=== PATIENT | female | born 1955 | race Caucasian/White ===

== ENCOUNTER 2017-02-22 18:24 | Emergency (ER) | payer MEDICARE, MEDICAID, SELFPAY ==
[2017-02-22 18:38] VITALS: BP 123/86
[2017-02-22] MEDS ORDERED: Sodium Chloride 0.9% 10 ML Syringe FLUSH PRN (18:49)
--- NOTE | 2017-02-22 19:06 | EDM.PDOC ---
ED HISTORY OF PRESENT ILLNESS - General Chief Complaint: Cardiovascular Problem Stated Complaint: RAPID HEART BEAT Time Seen by Provider: 02/22/17 18:41 Source of Information: Reports: Patient History Limitations: Reports: No limitations - History of Present Illness INITIAL COMMENTS - FREE TEXT/NARRATIVE: 61 year old female presents for evaluation and treatment of chest palpitations. Patient reports chest pain last night. Describes the chest pain as being hit with a bat in the chest hat took her breath away. She went to bed and has not had any chest pain today. Patient reports associated symptoms of diaphoresis and fatigue. Denies any recent coughs or colds, current chest pain, current shortness of breath, edema, nausea or vomiting. REports constant weight fluctuation of 1-3 pounds. No major weight loss or weight gain. Patient has a pacemaker in place and a history of CHF. No history of NH. Patient reports she had her pacemaker checked today. Patient was previously on remeron 30mg PO qhrs. Last week she contacted her PCP who instructed her to stop the remeron and start tylenon pm. Patient has been takign the tylenol pm and melatonin at night. States she has not slept well but does not like being on the remeron. - Related Data Allergies/ADRs: Allergies Allergy/AdvReac Type Severity Reaction Status Date / Time Pyrazoles Allergy unknown Verified 02/22/17 18:38 Sulfa (Sulfonamide Allergy unknown Verified 02/22/17 18:38 Antibiotics) celecoxib [From Celebrex] AdvReac weight gain Verified 02/22/17 18:38 rofecoxib AdvReac weight gain Verified 02/22/17 18:38 iv contrast Allergy Rash Uncoded 02/22/17 18:39 Home Meds: Home Meds Vitamin B Complex & Vit C No.4 [Super B Complex] 1 tab PO DAILY 02/09/14 [ History] atorvaSTATin [Lipitor] 10 mg PO DAILY 02/09/14 [History] Carvedilol 12.5 mg PO BID 10/05/14 [History] Cholecalciferol (Vitamin D3) [Vitamin D3] 1,000 units PO DAILY 10/05/14 [History ] LORazepam [Ativan] 0.5 mg PO Q6HR PRN #5 tablet 02/22/17 [Rx] Magnesium 250 mg PO TID 02/22/17 [History] Past Medical History HEENT History: Reports: Impaired vision Cardiovascular History: Reports: CAD, Cardiomyopathy, Pacemaker Other Cardiovascular History: grade 3 heart failure Respiratory History: Reports: Bronchitis, recurrent, Pneumonia, recurrent, SOB Musculoskeletal History: Reports: Fibromyalgia Psychiatric History: Reports: Anxiety, Depression, Other (see below) Other Psychiatric History: difficulty sleeping Endocrine/Metabolic History: Reports: Diabetes, type II Hematologic History: Reports: Anemia - Past Surgical History HEENT Surgical History: Reports: Cataract surgery GI Surgical History: Reports: Appendectomy, Bariatric procedure, Cholecystectomy , Hernia, abdominal Female Surgical History: Reports: section Social & Family History - Family History Family Medical History: Noncontributory - Tobacco Use Smoking Status *Q: Former Smoker Years of Tobacco use: 30 Used Tobacco, but Quit: No Month Tobacco Last Used: 5 years Second Hand Smoke Exposure: No - Caffeine Use Caffeine Use: Reports: Coffee - Alcohol Use Days Per Week of Alcohol Use: 0 - Recreational Drug Use Recreational Drug Use: No Drug Use in Last 12 Months: No ED ROS GENERAL - Review of Systems Review Of Systems: See Below Constitutional: Reports: malaise, fatigue, diaphoresis. Denies: fever, weight loss, weight gain Respiratory: Denies: Shortness of Breath (none currently, some last night), Cough Cardiovascular: Reports: Palpitations. Denies: Chest pain (no current chest pain; chest pain last night) GI/Abdominal: Denies: Abdominal pain, Nausea, Vomiting ED EXAM, GENERAL - Physical Exam Exam: See Below Exam Limited By: No limitations General Appearance: alert, WD/WN, no apparent distress Throat/Mouth: Normal voice, No airway compromise Respiratory/Chest: no respiratory distress, lungs clear, normal breath sounds Cardiovascular: normal peripheral pulses, regular rate, rhythm, no murmur GI/Abdominal: soft, non tender Neurological: alert, oriented, normal cognition Psychiatric: normal affect, normal mood Skin Exam: Warm, Dry, Normal color EKG INTERPRETATION EKG Date: 02/22/17 Time: 18:55 Rhythm: NSR Rate (beats/min): 68 [place]: normal P-wave: present QRS: normal ST-T: normal QT: normal EKG Interpretation Comments: NSR at 68 bpm. First degree AV block. Nonspecific interventricular conductions delay. No ischemic change. Reviewed by myself and Dr. Gamez. Course - Vital Signs Last Recorded V/S: Last Vital Signs Temp 37.4 C 02/22/17 18:25 Pulse 71 02/22/17 18:25 Resp 16 02/22/17 18:25 BP 123/86 02/22/17 18:25 Pulse Ox 97 02/22/17 18:25 - Orders/Labs/Meds Orders: Active Orders 24 hr Category Date Time Status Cardiac Monitoring [RC] . DIRECTED Care 02/22/17 18:49 Active EKG 12 Lead [EKG Documentation Completion] [RC] STAT Care 02/22/17 18:48 Active Peripheral IV Care [RC] . DIRECTED Care 02/22/17 18:49 Active Chest 1V Frontal [CR] Stat Exams 02/22/17 18:49 Taken Sodium Chloride 0.9% [Saline Flush] Med 02/22/17 18:49 Active 10 ml FLUSH ASDIRECTED PRN Peripheral IV Insertion Adult [OM.PC] Routine Oth 02/22/17 18:49 Ordered Medication Orders Sodium Chloride (Saline Flush) 10 ml FLUSH ASDIRECTED PRN PRN Reason: Keep Vein Open Labs: Laboratory Tests 02/22/17 02/22/17 02/22/17 Range/Units 19:15 19:15 19:15 WBC 7.65 (3.98-10.04) K/mm3 RBC 4.74 (3.98-5.22) M/mm3 Hgb 13.6 (11.2-15.7) gm/L Hct 41.7 (34.1-44.9) % MCV 88.0 (79.4-94.8) fl MCH 28.7 (25.6-32.2) pg MCHC 32.6 (32.2-35.5) g/dl RDW Std Deviation 40.8 (36.4-46.3) fL Plt Count 253 (182-369) K/mm3 MPV 10.4 (9.4-12.3) fl Neut % (Auto) 60.2 (34.0-71.1) % Lymph % (Auto) 27.8 (19.3-51.7) % [place] % (Auto) 8.0 (4.7-12.5) % Eos % (Auto) 3.4 (0.7-5.8) Baso % (Auto) 0.3 (0.1-1.2) % Neut # (Auto) 4.61 (1.56-6.13) K/mm3 Lymph # (Auto) 2.13 (1.18-3.74) K/mm3 [place] # (Auto) 0.61 H (0.24-0.36) K/mm3 Eos # (Auto) 0.26 (0.04-0.36) K/mm3 Baso # (Auto) 0.02 (0.01-0.08) K/mm3 Manual Slide Review Normal smear PT 10.1 (8.0-13.0) SECONDS INR 0.93 APTT 28 (22-36) SECONDS Sodium 142 (136-145) mEq/L Potassium 3.9 (3.5-5.1) mEq/L Chloride 105 (98-107) mEq/L Carbon Dioxide 26 (21-32) mEq/L Anion Gap 14.9 (5-15) BUN 23 H (7-18) mg/dL Creatinine 0.7 (0.55-1.02) mg/dL Est Cr Clr Drug Dosing 59.85 mL/min Estimated GFR (MDRD) > 60 (>60) mL/min BUN/Creatinine Ratio 32.9 H (14-18) Glucose 138 H (80-115) mg/dL Calcium 9.4 (8.5-10.1) mg/dL Total Bilirubin 0.2 (0.2-1.0) mg/dL AST 54 H (15-37) U/L ALT 82 H (14-59) U/L Alkaline Phosphatase 143 H (46-116) U/L CK-MB (CK-2) 0.6 (0-3.6) ng/ml Troponin I < 0.017 (0.00-0.056) ng/mL B-Natriuretic Peptide (0-100) pg/mL Total Protein 7.1 (6.4-8.2) g/dl Albumin 3.7 (3.4-5.0) g/dl Globulin 3.4 gm/dL Albumin/Globulin Ratio 1.1 (1-2) TSH 3rd Generation 3.469 (0.358-3.74) uIU/mL 02/22/17 Range/Units 19:15 WBC (3.98-10.04) K/mm3 RBC (3.98-5.22) M/mm3 Hgb (11.2-15.7) gm/L Hct (34.1-44.9) % MCV (79.4-94.8) fl MCH (25.6-32.2) pg MCHC (32.2-35.5) g/dl RDW Std Deviation (36.4-46.3) fL Plt Count (182-369) K/mm3 MPV (9.4-12.3) fl Neut % (Auto) (34.0-71.1) % Lymph % (Auto) (19.3-51.7) % [place] % (Auto) (4.7-12.5) % Eos % (Auto) (0.7-5.8) Baso % (Auto) (0.1-1.2) % Neut # (Auto) (1.56-6.13) K/mm3 Lymph # (Auto) (1.18-3.74) K/mm3 [place] # (Auto) (0.24-0.36) K/mm3 Eos # (Auto) (0.04-0.36) K/mm3 Baso # (Auto) (0.01-0.08) K/mm3 Manual Slide Review PT (8.0-13.0) SECONDS INR APTT (22-36) SECONDS Sodium (136-145) mEq/L Potassium (3.5-5.1) mEq/L Chloride (98-107) mEq/L Carbon Dioxide (21-32) mEq/L Anion Gap (5-15) BUN (7-18) mg/dL Creatinine (0.55-1.02) mg/dL Est Cr Clr Drug Dosing mL/min Estimated GFR (MDRD) (>60) mL/min BUN/Creatinine Ratio (14-18) Glucose (80-115) mg/dL Calcium (8.5-10.1) mg/dL Total Bilirubin (0.2-1.0) mg/dL AST (15-37) U/L ALT (14-59) U/L Alkaline Phosphatase (46-116) U/L CK-MB (CK-2) (0-3.6) ng/ml Troponin I (0.00-0.056) ng/mL B-Natriuretic Peptide 34 (0-100) pg/mL Total Protein (6.4-8.2) g/dl Albumin (3.4-5.0) g/dl Globulin gm/dL Albumin/Globulin Ratio (1-2) TSH 3rd Generation (0.358-3.74) uIU/mL Meds: Medications Generic Name Dose Route Start Last Admin Trade Name Freq PRN Reason Stop Dose Admin Sodium Chloride 10 ml 02/22/17 18:49 Saline Flush FLUSH ASDIRECTED PRN Keep Vein Open Discontinued Medications Generic Name Dose Route Start Last Admin Trade Name Freq PRN Reason Stop Dose Admin Lorazepam 0.5 mg 02/22/17 20:26 Ativan IVPUSH 02/22/17 20:27 ONETIME ONE Lorazepam 0.5 mg 02/22/17 20:33 02/22/17 20:38 Ativan PO 02/22/17 20:34 0.5 mg ONETIME ONE Administration - Radiology Interpretation Free Text/Narrative:: Chest xray 1 view shows a small left sided pleural effusion. No acute changes. No pulmonary congestion. Cardiac pacemaker in place. - Re-Assessments/Exams Free Text/Narrative Re-Assessment/Exam: 02/22/17 20:43 Labs returned. WBC normal at 7.65, hgb is 13.6 and plts are 253 Sodium is 142, potassium is 3.9 and chloride is 105. A.G is 14.9 and glucose is 138 AST is mildly elevated at 54, ALT mildly elevated at 82 and alk phos midly elevated at 143. Upon review of previous labs elevated liver enzymes appears to be chronic BNP is normal at 34 trop is within normal limits at <0.017 CKMB is within normal limits at 0.6 Pt is 10.1, INR is 0.93 Ptt is 28 I reviewed the labs, chest xray and ekg results with the patient. I believe she is having side effects from the abrupt discontinuation of the remeron. Gave 0.5 mg ativan PO in the ER for side effects, minimal improvement. Discussed going back on the remeron and tapering down. The patient does not want to go back on the remeron. Patient would like to go home at this time. Discharge instructions as documented. Departure - Departure Time of Disposition: 20:59 Disposition: Home, Self-Care 01 Condition: fair Clinical Impression: Palpitations, Antidepressant discontinuation syndrome Prescriptions: LORazepam [Ativan] 0.5 mg PO Q6HR PRN #5 tablet PRN Reason: Anxiety Instructions: Palpitations, [id number] Referrals: Kia Joseph, [employer]ICE SUPERVISOR [Primary Care Provider] - Forms: ED Department Discharge Additional Instructions: You were given medication in the ER that can make your drowsy. Please do not drive operate machinery within 8 hours of taking ativan Ativan 0.5mg PO every 6 hours prn anxiety, chest palpitations. Do not drive or operate machinery within 8 hours of taking the ativan. Follow-up with PCP in 7-10 days if symptoms persist. Rest. Drink plenty of fluids. Please return to the ER should your symptoms change or worsen. - My Orders Last 24 Hours: My Active Orders 02/22/17 18:48 EKG 12 Lead [EKG Documentation Completion] [RC] STAT 02/22/17 18:49 Cardiac Monitoring [RC] . DIRECTED Peripheral IV Care [RC] . DIRECTED Chest 1V Frontal [CR] Stat Sodium Chloride 0.9% [Saline Flush] 10 ml FLUSH ASDIRECTED PRN Peripheral IV Insertion Adult [OM.PC] Routine - Assessment/Plan Last 24 Hours: My Active Orders 02/22/17 18:48 EKG 12 Lead [EKG Documentation Completion] [RC] STAT 02/22/17 18:49 Cardiac Monitoring [RC] . DIRECTED Peripheral IV Care [RC] . DIRECTED Chest 1V Frontal [CR] Stat Sodium Chloride 0.9% [Saline Flush] 10 ml FLUSH ASDIRECTED PRN Peripheral IV Insertion Adult [OM.PC] Routine
[2017-02-22] MEDS ORDERED: LORazepam 2 MG/ML MDV IVPUSH ONE (20:26)
[2017-02-22] MEDS ORDERED: LORazepam 0.5 MG Tab PO ONE (20:33)
--- NOTE | 2017-02-23 11:50 | CR ---
Chest: Frontal view of the chest was obtained. Comparison: Previous chest x-ray of 02/10/16. Heart size and mediastinum are normal. AICD is present. Slight blunting of the lateral left costophrenic angle is seen which appears chronic. No acute infiltrates are seen. Scoliosis is present within the spine. Impression: 1. Incidental findings. Nothing acute is identified on frontal chest x-ray. Diagnostic code #2
== END 2017-02-22 21:33 | disposition home or self-care (01) ==
LOC: JD.ED 18:24
DX: R00.2 Palpitations (principal); T43.205A Adverse effect of unspecified antidepressants, initial encounter; I25.10 Atherosclerotic heart disease of native coronary artery without angina pectoris; F41.8 Other specified anxiety disorders; J18.9 Pneumonia, unspecified organism; I50.9 Heart failure, unspecified; E11.9 Type 2 diabetes mellitus without complications; D64.9 Anemia, unspecified; Z95.0 Presence of cardiac pacemaker; Z79.899 Other long term (current) drug therapy; Z88.8 Allergy status to other drugs, medicaments and biological substances; Z91.041 Radiographic dye allergy status
CPT/HCPCS: 36415; 71010; 80053; 82553; 83880; 84443; 84484; 85025; 85610; 85730; 93005; 99285; A9270; 99284

== ENCOUNTER 2017-10-23 12:54 | Emergency (ER) | payer MEDICARE, MEDICAID ==
[2017-10-23 13:08] VITALS: BP 121/77
[2017-10-23] MEDS ORDERED: HYDROmorphone 1 MG/ML Syringe IVPUSH ONE ×2 (13:43→17:12)
[2017-10-23] MEDS ORDERED: Ondansetron 4 MG/2 ML SDV IVPUSH ONE (13:43)
[2017-10-23] MEDS ORDERED: Sodium Chloride 0.9% 1,000 ML IV SCH (13:45)
--- NOTE | 2017-10-23 14:56 | EDM.PDOC ---
ED HPI GENERAL MEDICAL PROBLEM - General Chief Complaint: Chest Pain Stated Complaint: CHEST PAIN AND SOB Time Seen by Provider: 10/23/17 13:25 Source of Information: Reports: Patient, Family (2 daughters) History Limitations: Reports: No Limitations - History of Present Illness INITIAL COMMENTS - FREE TEXT/NARRATIVE: The patient states that she has had epigastric abdominal pain on and off for the past 2 or 3 months. She states that she has had nausea, and had one episode of emesis several weeks ago. No recent constipation, diarrhea, or urinary symptoms. No recent fever. Medical records indicate that the patient underwent an air contrast upper GI on 10/11/2017, which was read as negative. She states that blood work, including an H. pylori antigen, ordered by her PCP, Kia Joseph, was negative. She states that she took pantoprazole up to twice a day for about one month, but that it did not help, therefore she discontinued it about 3 weeks ago. The patient states that she has been referred for an EGD in [place], but has not yet made an appointment. Epigastric Pain Score (Numeric/FACES): 8 - Related Data Allergies Allergy/AdvReac Type Severity Reaction Status Date / Time Pyrazoles Allergy unknown Verified 10/23/17 13:09 regadenoson [From Lexiscan] Allergy Rash Verified 10/23/17 14:02 Sulfa (Sulfonamide Allergy unknown Verified 10/23/17 13:09 Antibiotics) celecoxib [From Celebrex] AdvReac weight gain Verified 10/23/17 13:09 rofecoxib AdvReac weight gain Verified 10/23/17 13:09 Home Meds: Home Meds Vitamin B Complex & Vit C No.4 [Super B Complex] 1 tab PO DAILY 02/09/14 [ History] atorvaSTATin [Lipitor] 10 mg PO DAILY 02/09/14 [History] Cholecalciferol (Vitamin D3) [Vitamin D3] 1,000 units PO DAILY 10/05/14 [History ] Magnesium 500 mg PO DAILY 02/22/17 [History] Amoxicillin/Potassium Clav [IJP: Augmentin 875-125 MG] 1 tab PO BID 10/23/17 [ History] traMADol [Ultram] 1 tab PO Q12H PRN #10 tablet 10/23/17 [Rx] traZODone 150 mg PO BEDTIME 10/23/17 [History] Past Medical History HEENT History: Reports: Impaired Vision Cardiovascular History: Reports: Cardiomyopathy (viral, now resolved) Musculoskeletal History: Reports: Arthritis, Fibromyalgia Psychiatric History: Reports: Anxiety, Depression Endocrine/Metabolic History: Reports: Diabetes, Type II (resolved after gastric bypass), Obesity/BMI 30+ Hematologic History: Reports: Anemia - Past Surgical History HEENT Surgical History: Reports: Cataract Surgery, Oral Surgery ([place] teeth extraction) Cardiovascular Surgical History: Reports: AICD, Other (See Below) (Coronary angiogram) GI Surgical History: Reports: Appendectomy, Bariatric Procedure (Gastric bypass February 2016), Cholecystectomy, Hernia, Abdominal (x 6) Female Surgical History: Reports: Section (x 2), Hysterectomy, Salpingo-Oophorectomy Social & Family History - Family History Family Medical History: Noncontributory - Tobacco Use Smoking Status *Q: Former Smoker Years of Tobacco use: 31 Packs/Tins Daily: 1 Month Tobacco Last Used: Quit 2010 Second Hand Smoke Exposure: No - Caffeine Use Caffeine Use: Reports: Coffee - Alcohol Use Alcohol Use History: No Days Per Week of Alcohol Use: 0 - Recreational Drug Use Recreational Drug Use: No - Living Situation & Occupation Living situation: Reports: , Alone Occupation: Retired ED ROS GENERAL - Review of Systems Review Of Systems: See Below Constitutional: Reports: No Symptoms HEENT: Reports: No Symptoms Respiratory: Reports: No Symptoms Cardiovascular: Reports: No Symptoms Endocrine: Reports: No Symptoms GI/Abdominal: Reports: Abdominal Pain (as per the HPI), Nausea (as per the HPI) . Denies: Bloody Stool : Reports: No Symptoms Musculoskeletal: Reports: No Symptoms Skin: Reports: No Symptoms Neurological: Reports: No Symptoms Psychiatric: Reports: No Symptoms Hematologic/Lymphatic: Reports: No Symptoms Immunologic: Reports: No Symptoms ED EXAM, GI/ABD - Physical Exam Exam: See Below Exam Limited By: No Limitations General Appearance: Alert, WD/WN, No Apparent Distress Eyes: Bilateral: Normal Appearance, EOMI Ears: Normal External Exam, Hearing Grossly Normal Nose: Normal Inspection, No Blood Throat/Mouth: Normal Inspection, Normal Lips, Normal Voice, No Airway Compromise Head: Atraumatic, Normocephalic Neck: Normal Inspection, Full Range of Motion Respiratory/Chest: No Respiratory Distress, Lungs Clear, Normal Breath Sounds, No Accessory Muscle Use Cardiovascular: Normal Peripheral Pulses, Regular Rate, Rhythm, No Gallop, No JVD, No Murmur, No Rub GI/Abdominal Exam: Normal Bowel Sounds, Soft, No Organomegaly, No Distention, No Abnormal Bruit, No Mass, Pelvis Stable, Tender (Epigastric region only. Nontender elsewhere.), Other (Obese) (Female) Exam: Deferred Rectal (Female) Exam: Deferred Back Exam: Normal Inspection, Full Range of Motion. No: CVA Tenderness (L), CVA Tenderness (R) Extremities: Normal Inspection, Normal Range of Motion, No Pedal Edema, Normal Capillary Refill Neurological: Alert, Oriented, Normal Cognition, No Motor/Sensory Deficits Psychiatric: Normal Affect Skin Exam: Warm, Dry, Intact, Normal Color, No Rash EKG INTERPRETATION EKG Date: 10/23/17 Time: 13:14 Rhythm: Other (Sinus tachycardia) Rate (Beats/Min): 101 [place]: Normal P-Wave: Present (1st degree AVB) QRS: Other (Nonspecific IVCD. [address]-T: Normal QT: Normal Comparison: No Change Course - Vital Signs Last Recorded V/S: Last Vital Signs Temp 36.9 C 10/23/17 13:05 Pulse 111 H 10/23/17 13:05 Resp 18 10/23/17 13:05 BP 121/77 10/23/17 13:05 Pulse Ox 98 10/23/17 13:05 - Orders/Labs/Meds Orders: Active Orders 24 hr Category Date Time Status EKG 12 Lead [EKG Documentation Completion] [RC] STAT Care 10/23/17 13:16 Active Strain Urine [RC] ASDIRECTED Care 10/23/17 17:12 Active Labs: Laboratory Tests 10/23/17 10/23/17 10/23/17 Range/Units 15:00 15:00 17:03 WBC 8.93 (3.98-10.04) K/mm3 RBC 5.15 (3.98-5.22) M/mm3 Hgb 14.8 (11.2-15.7) gm/L Hct 45.4 H (34.1-44.9) % MCV 88.2 (79.4-94.8) fl MCH 28.7 (25.6-32.2) pg MCHC 32.6 (32.2-35.5) g/dl RDW Std Deviation 43.4 (36.4-46.3) fL Plt Count 256 (182-369) K/mm3 MPV 9.6 (9.4-12.3) fl Neutrophils % (Manual) 93 H (40-60) % Band Neutrophils % 0 (0-10) % Lymphocytes % (Manual) 4 L (20-40) % Atypical Lymphs % 0 % Monocytes % (Manual) 2 (2-10) % Eosinophils % (Manual) 1 (0.7-5.8) % Basophils % (Manual) 0 L (0.1-1.2) Platelet Estimate Adequate RBC Morph Comment Normal Sodium 139 (136-145) mEq/L Potassium 4.3 (3.5-5.1) mEq/L Chloride 102 (98-107) mEq/L Carbon Dioxide 29 (21-32) mEq/L Anion Gap 12.3 (5-15) BUN 15 (7-18) mg/dL Creatinine 0.8 (0.55-1.02) mg/dL Est Cr Clr Drug Dosing 52.37 mL/min Estimated GFR (MDRD) > 60 (>60) mL/min BUN/Creatinine Ratio 18.8 H (14-18) Glucose 213 H (80-115) mg/dL Calcium 9.4 (8.5-10.1) mg/dL Total Bilirubin 0.4 (0.2-1.0) mg/dL AST 46 H (15-37) U/L ALT 72 H (14-59) U/L Alkaline Phosphatase 96 (46-116) U/L Total Protein 7.4 (6.4-8.2) g/dl Albumin 3.8 (3.4-5.0) g/dl Globulin 3.6 gm/dL Albumin/Globulin Ratio 1.1 (1-2) Lipase 117 (73-393) U/L Urine Color Yellow (Yellow) Urine Appearance Clear (Clear) Urine pH 6.5 (5.0-8.0) Ur Specific [place] 1.010 (1.005-1.030) Urine Protein Negative (Negative) Urine Glucose (UA) Negative (Negative) Urine Ketones Negative (Negative) Urine Occult Blood Negative (Negative) Urine Nitrite Negative (Negative) Urine Bilirubin Negative (Negative) Urine Urobilinogen 1.0 (0.2-1.0) Ur Leukocyte Esterase Negative (Negative) Urine RBC 0-5 (0-5) /hpf Urine WBC 0-5 (0-5) /hpf Ur Epithelial Cells 0-5 (0-5) /hpf Urine Bacteria Occasional (FEW) /hpf Urine Mucus Not seen (FEW) /hpf Meds: Medications Discontinued Medications Generic Name Dose Route Start Last Admin Trade Name Freq PRN Reason Stop Dose Admin Diatrizoate Meglum/Diatrizoate Sod 90 ml 10/23/17 15:37 10/23/17 15:54 Gastrografin 37% PO 10/23/17 15:38 90 ml ONETIME ONE Administration Hydromorphone HCl 1 mg 10/23/17 13:43 10/23/17 13:57 Dilaudid IVPUSH 10/23/17 13:44 1 mg ONETIME ONE Administration Hydromorphone HCl 1 mg 10/23/17 17:12 10/23/17 17:18 Dilaudid IVPUSH 10/23/17 17:13 1 mg ONETIME ONE Administration Sodium Chloride 1,000 mls @ 150 mls/hr 10/23/17 13:45 10/23/17 13:58 Normal Saline IV 150 mls/hr ASDIRECTED MANUEL Administration Iopamidol 125 ml 10/23/17 15:37 10/23/17 15:54 Isovue-300 (61%) IVPUSH 10/23/17 15:38 125 ml ONETIME ONE Administration Ondansetron HCl 4 mg 10/23/17 13:43 10/23/17 13:57 Zofran IVPUSH 10/23/17 13:44 4 mg ONETIME ONE Administration Sodium Chloride 10 ml 10/23/17 15:37 10/23/17 15:54 Saline Flush FLUSH 10 ml ONETIME PRN Administration IV FLUSH Tamsulosin HCl 0.4 mg 10/23/17 17:12 10/23/17 17:18 Flomax PO 10/23/17 17:13 0.4 mg ONETIME ONE Administration - Re-Assessments/Exams Free Text/Narrative Re-Assessment/Exam: 10/23/17 18:08 CT of the abdomen and pelvis with oral and IV contrast is read by Dr. Epstein as: 1. 3.5 mm stone appears to be present within the proximal left ureter which does not cause any significant hydronephrosis at this time. 2. Diverticuli without diverticulitis within the descending and sigmoid colons. 3. Other incidental findings. 10/23/17 18:17 Test results discussed with the patient and one of her daughters. Today's workup finds a 3.5 mm stone in the proximal left ureter, however, I do not believe that this is the cause of the patient's epigastric abdominal pain. Indeed, the patient has no hydronephrosis, and no blood in the urine. It is possible that the stone may descend and cause problems at some point in the future, however, at this time, I do not believe any treatment is required. The cause of the patient's epigastric pain is unclear. The patient states that she will be calling [facility] tomorrow to arrange for an EGD, which I encouraged. For today's purposes, I will write the patient a prescription for tramadol. She has been given a urine strainer, in case she is able to pass the stone. Departure - Departure Time of Disposition: 18:19 Disposition: Home, Self-Care 01 Condition: Good Clinical Impression: Epigastric abdominal pain of unknown etiology, Ureterolithiasis - Discharge Information Prescriptions: traMADol [Ultram] 1 tab PO Q12H PRN #10 tablet PRN Reason: Abdominal Pain Instructions: Kidney Stones, [id number] Referrals: Kia Joseph, D[employer] DEVELOPER [Primary Care Provider] - Forms: ED Department Discharge Additional Instructions: You were seen in the emergency room for upper midline abdominal pain, on and off for the past 2-3 months. Workup in the ER included blood work, a urinalysis, an ECG, and a CT scan of your abdomen and pelvis with oral and IV contrast. Your workup found a 3.5 mm stone in the upper part of your left ureter, however , your kidney is not swollen, and there is no blood in your urine. This kidney stone does not appear to be the cause of your abdominal pain. Your blood sugar was found to be modestly elevated at 213. This may be due to a condition called prediabetes, but further evaluation is necessary. The remainder of your workup was unremarkable. You do not have pancreatitis. You do not have a urinary tract infection. The cause of your abdominal pain is not known at this time. Further evaluation is needed. You may take one tablet of tramadol up to every 12 hours, as needed for pain. If you take tramadol, do not drive for 10 hours afterwards. Tylenol may cause constipation, so consider taking a stool softener. We recommend that you arrange for an EGD (scope of your stomach), as you were already planning. Follow-up with your PCP, Kia Joseph, at the next available appointment, for further evaluation of your high blood sugar. If any other problems, please do not hesitate to return to the ER. - My Orders Last 24 Hours: My Active Orders 10/23/17 13:16 EKG 12 Lead [EKG Documentation Completion] [RC] STAT 10/23/17 17:12 Strain Urine [RC] ASDIRECTED - Assessment/Plan Last 24 Hours: My Active Orders 10/23/17 13:16 EKG 12 Lead [EKG Documentation Completion] [RC] STAT 10/23/17 17:12 Strain Urine [RC] ASDIRECTED
[2017-10-23] MEDS ORDERED: Iopamidol 612 MG/ML 150 ML Bottle IVPUSH ONE (15:37)
[2017-10-23] MEDS ORDERED: Sodium Chloride 0.9% 10 ML Syringe FLUSH PRN (15:37)
[2017-10-23] MEDS ORDERED: Diatrizoate Meglumine/Diatrizoate Sodium 37% 120 ML Bottle PO ONE (15:37)
--- NOTE | 2017-10-23 16:30 | CT ---
CT abdomen and pelvis Technique: Multiple axial sections were obtained from above the dome of the diaphragm inferiorly through the pubic symphysis. Intravenous and oral contrast was utilized. Delayed images were obtained through the bladder. Findings: Small portion of the visualized lung bases are clear. Cyst is identified within the liver near the gallbladder fossa measuring 1.8 cm in size. Spleen appears within normal limits. Adrenal glands show no nodule. Surgical clips are seen from prior cholecystectomy. Nonobstructing calculi are seen within each kidney. These measure 6 mm or less in size. There is a calcification believed to represent a ureteral stone measuring 3.5 mm within the proximal left ureter. Pancreas is within normal limits. Previous stomach surgery is seen. Kidneys otherwise appear within normal limits. Aorta shows atherosclerotic change which continues into the iliac vessels without aneurysm. No retroperitoneal adenopathy or mesenteric abnormalities are seen. Mild diverticulosis is noted within the sigmoid and descending colon. No free fluid or inflammatory change is seen. Delayed images shows contrast within the bladder. Bone window settings were reviewed showing scattered degenerative change within the spine. Impression: 1. 3.5 mm stone appears to be present within the proximal left ureter which does not cause any significant hydronephrosis at this time. 2. Diverticuli without diverticulitis within the descending and sigmoid colons. 3. Other incidental findings. Diagnostic code #3
[2017-10-23] MEDS ORDERED: Tamsulosin 0.4 MG Cap.ER PO ONE (17:12)
== END 2017-10-23 18:35 | disposition home or self-care (01) ==
LOC: JD.ED 12:54
DX: R10.13 Epigastric pain (principal); N20.1 Calculus of ureter; Z88.2 Allergy status to sulfonamides; Z88.8 Allergy status to other drugs, medicaments and biological substances; E11.9 Type 2 diabetes mellitus without complications; Z90.710 Acquired absence of both cervix and uterus; Z87.891 Personal history of nicotine dependence; Z79.899 Other long term (current) drug therapy
CPT/HCPCS: 36415; 74177; 80053; 81001; 83690; 85025; 93005; 96361; 96374; 96375; 96376; 99284; A9270; J1170; J2405; J7040; J7050; Q9963; Q9967; 93010

== ENCOUNTER 2018-04-22 21:03 | Emergency (ER) | payer MEDICARE, MEDICAID ==
[2018-04-22 21:10] VITALS: BP 146/92
[2018-04-22] MEDS ORDERED: Alum Hydrox/Mag Hydrox/Simeth 30 ML, Lidocaine 2% 15 ML PO STA ×2 (21:24)
--- NOTE | 2018-04-22 21:42 | EDM.PDOC ---
ED HPI GENERAL MEDICAL PROBLEM - General Chief Complaint: Chest Pain Stated Complaint: NOT BREATHING Time Seen by Provider: 04/22/18 21:07 Source of Information: Reports: Patient, Family History Limitations: Reports: No Limitations - History of Present Illness INITIAL COMMENTS - FREE TEXT/NARRATIVE: The patient states that she developed left sided chest pain around 20:45 tonight. Initially it started, then came on strong. It is sharp in character, a pain, not her discomfort. It is not modifiable. She has associated dyspnea, but no associated nausea, diaphoresis, or sense of impending doom. She states that she had similar symptoms about a year ago, was seen in [place], but does not recall what her diagnosis was. 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 The patient does not recall the exact findings, but no stents were placed. She also relates that she underwent an echocardiogram per Dr. Luna, her [employer] in [place], this past Tuesday, 09/2018, revealing her LVEF to be 45%. The patient's PCP is Kia Joseph. Left Chest Pain Score (Numeric/FACES): 10 - Related Data Allergies Allergy/AdvReac Type Severity Reaction Status Date / Time Pyrazoles Allergy unknown Verified 10/23/17 13:09 regadenoson [From Lexiscan] Allergy Rash Verified 10/23/17 14:02 spironolactone Allergy Cannot Verified 12/22/17 13:25 Remember Sulfa (Sulfonamide Allergy unknown Verified 10/23/17 13:09 Antibiotics) celecoxib [From Celebrex] AdvReac weight gain Verified 10/23/17 13:09 rofecoxib AdvReac weight gain Verified 10/23/17 13:09 Home Meds: Home Meds Vitamin B Complex & Vit C No.4 [Super B Complex] 1 tab PO DAILY 02/09/14 [ History] atorvaSTATin [Lipitor] 10 mg PO DAILY 02/09/14 [History] Cholecalciferol (Vitamin D3) [Vitamin D3] 4,000 units PO DAILY 10/05/14 [History ] Magnesium 500 mg PO DAILY 02/22/17 [History] traZODone 150 mg PO BEDTIME 10/23/17 [History] DULoxetine HCl [Cymbalta] 30 mg PO DAILY 04/22/18 [History] Denosumab [Prolia] 1 injection SQ ASDIRECTED 04/22/18 [History] Diclofenac Sodium 100 gm TP QID PRN 04/22/18 [History] Fluticasone Propionate [24 Hour Allergy Relief] 15.8 ml NS BID 04/22/18 [History ] Hyoscyamine Sulfate [Anaspaz] 0.125 mg PO Q4HR PRN 04/22/18 [History] Orphenadrine [Norflex] 1 tab PO Q12H PRN #14 tab.er 04/22/18 [Rx] Pantoprazole Sodium [Protonix] 40 mg PO DAILY 04/22/18 [History] Past Medical History HEENT History: Reports: Impaired Vision Cardiovascular History: Reports: Afib (paroxysmal), Cardiomyopathy (viral), Heart Failure (LVEF 45% 04/17/2018) Musculoskeletal History: Reports: Arthritis Psychiatric History: Reports: Anxiety, Depression, Other (See Below) ( Fibromyalgia, Insomnia) Endocrine/Metabolic History: Reports: Diabetes, Type II (resolved after gastric bypass February 2016) Hematologic History: Reports: Anemia - Past Surgical History HEENT Surgical History: Reports: Cataract Surgery, Oral Surgery ([place] teeth extraction) Cardiovascular Surgical History: Reports: AICD, Other (See Below) (Coronary angiogram approximately 2012) GI Surgical History: Reports: Appendectomy, Bariatric Procedure (Gastric bypass February 2016), Cholecystectomy, Hernia, Abdominal (x 6) Female Surgical History: Reports: Section (x 2), Hysterectomy, Salpingo-Oophorectomy Social & Family History - Family History Family Medical History: Noncontributory - Tobacco Use Smoking Status *Q: Former Smoker Used Tobacco, but Quit: Yes Month/Year Tobacco Last Used: 20 - Caffeine Use Caffeine Use: Reports: None - Recreational Drug Use Recreational Drug Use: No - Living Situation & Occupation Living situation: Reports: , Alone Occupation: Retired ED ROS GENERAL - Review of Systems Review Of Systems: ROS reveals no pertinent complaints other than HPI. ED EXAM, GENERAL - Physical Exam Exam: See Below Exam Limited By: No Limitations General Appearance: Alert, WD/WN, Mild Distress (complaining of pain) Eye Exam: Bilateral Eye: Normal Inspection Ears: Normal External Exam, Hearing Grossly Normal Nose: Normal Inspection, No Blood Throat/Mouth: Normal Inspection, Normal Lips, Normal Voice, No Airway Compromise Head: Atraumatic, Normocephalic Neck: Normal Inspection, Full Range of Motion Respiratory/Chest: No Respiratory Distress, Lungs Clear, Normal Breath Sounds, No Accessory Muscle Use, Other (Reproducible tenderness to palpation of the central and left sided chest. No visible abnormality.) Cardiovascular: Normal Peripheral Pulses, No Gallop, No JVD, No Murmur, No Rub, Tachycardia, Other (regularly irregular) Peripheral Pulses: 4+: Radial (L), Radial (R) GI/Abdominal: Normal Bowel Sounds, Soft, No Organomegaly, No Distention, No Abnormal Bruit, No Mass, Tender (Palpation of the epigastrium and left upper quadrant induce pain in the left chest), Other (Obese) (Female) Exam: Deferred Rectal (Female) Exam: Deferred Back Exam: Normal Inspection, Full Range of Motion, NT Extremities: Normal Inspection, Normal Range of Motion, Normal Capillary Refill Neurological: Alert, Oriented, Normal Cognition, No Motor/Sensory Deficits Psychiatric: Normal Affect Skin Exam: Warm, Dry, Intact, Normal Color, No Rash EKG INTERPRETATION EKG Date: 04/22/18 Time: 21:09 Rhythm: NSR (with ventricular bigeminy) Rate (Beats/Min): 50 [place]: Normal P-Wave: Present QRS: Wide (Nonspecific intraventricular conduction delay) ST-T: Normal QT: Prolonged (QTc 492 ms) Comparison: Change From Previous EKG (ECG 10/23/2017 did not have ventricular bigeminy or QTc prolongation) Course - Vital Signs Last Recorded V/S: Last Vital Signs Temp 36.8 C 04/22/18 21:07 Pulse 100 04/22/18 21:07 Resp 19 04/22/18 21:07 BP 146/92 H 04/22/18 21:07 Pulse Ox 94 L 04/22/18 21:07 - Orders/Labs/Meds Orders: Active Orders 24 hr Category Date Time Status EKG 12 Lead [EKG Documentation Completion] [RC] STAT Care 04/22/18 21:13 Active Chest 2V [CR] Stat Exams 04/22/18 21:24 Taken Labs: Laboratory Tests 04/22/18 04/22/18 04/22/18 Range/Units 21:10 21:10 21:10 WBC 6.47 (3.98-10.04) K/mm3 RBC 4.93 (3.98-5.22) M/mm3 Hgb 13.9 (11.2-15.7) gm/L Hct 43.2 (34.1-44.9) % MCV 87.6 (79.4-94.8) fl MCH 28.2 (25.6-32.2) pg MCHC 32.2 (32.2-35.5) g/dl RDW Std Deviation 43.8 (36.4-46.3) fL Plt Count 250 (182-369) K/mm3 MPV 9.9 (9.4-12.3) fl Neutrophils % (Manual) 49 (40-60) % Band Neutrophils % 0 (0-10) % Lymphocytes % (Manual) 40 (20-40) % Atypical Lymphs % 0 % Monocytes % (Manual) 8 (2-10) % Eosinophils % (Manual) 0 L (0.7-5.8) % Basophils % (Manual) 3 H (0.1-1.2) Platelet Estimate Adequate Plt Morphology Comment Normal PT 10.2 (9.5-12.1) SECONDS INR 0.93 APTT 29 (24-31) SECONDS D-Dimer, Quantitative 0.48 (0.19-0.50) mg/L Sodium 139 (136-145) mEq/L Potassium 4.0 (3.5-5.1) mEq/L Chloride 102 (98-107) mEq/L Carbon Dioxide 28 (21-32) mEq/L Anion Gap 13.0 (5-15) BUN 23 H (7-18) mg/dL Creatinine 0.9 (0.55-1.02) mg/dL Est Cr Clr Drug Dosing 55.25 mL/min Estimated GFR (MDRD) > 60 (>60) mL/min BUN/Creatinine Ratio 25.6 H (14-18) Glucose 137 H (80-115) mg/dL Calcium 9.5 (8.5-10.1) mg/dL Magnesium 1.8 (1.8-2.4) mg/dl Total Bilirubin 0.4 (0.2-1.0) mg/dL AST 65 H (15-37) U/L ALT 57 (14-59) U/L Alkaline Phosphatase 75 (46-116) U/L Troponin I < 0.017 (0.00-0.056) ng/mL NT-Pro-B Natriuret Pep (0-125) pg/mL Total Protein 7.4 (6.4-8.2) g/dl Albumin 4.0 (3.4-5.0) g/dl Globulin 3.4 gm/dL Albumin/Globulin Ratio 1.2 (1-2) Lipase 123 (73-393) U/L 04/22/18 Range/Units 21:10 WBC (3.98-10.04) K/mm3 RBC (3.98-5.22) M/mm3 Hgb (11.2-15.7) gm/L Hct (34.1-44.9) % MCV (79.4-94.8) fl MCH (25.6-32.2) pg MCHC (32.2-35.5) g/dl RDW Std Deviation (36.4-46.3) fL Plt Count (182-369) K/mm3 MPV (9.4-12.3) fl Neutrophils % (Manual) (40-60) % Band Neutrophils % (0-10) % Lymphocytes % (Manual) (20-40) % Atypical Lymphs % % Monocytes % (Manual) (2-10) % Eosinophils % (Manual) (0.7-5.8) % Basophils % (Manual) (0.1-1.2) Platelet Estimate Plt Morphology Comment PT (9.5-12.1) SECONDS INR APTT (24-31) SECONDS D-Dimer, Quantitative (0.19-0.50) mg/L Sodium (136-145) mEq/L Potassium (3.5-5.1) mEq/L Chloride (98-107) mEq/L Carbon Dioxide (21-32) mEq/L Anion Gap (5-15) BUN (7-18) mg/dL Creatinine (0.55-1.02) mg/dL Est Cr Clr Drug Dosing mL/min Estimated GFR (MDRD) (>60) mL/min BUN/Creatinine Ratio (14-18) Glucose (80-115) mg/dL Calcium (8.5-10.1) mg/dL Magnesium (1.8-2.4) mg/dl Total Bilirubin (0.2-1.0) mg/dL AST (15-37) U/L ALT (14-59) U/L Alkaline Phosphatase (46-116) U/L Troponin I (0.00-0.056) ng/mL NT-Pro-B Natriuret Pep 244 H (0-125) pg/mL Total Protein (6.4-8.2) g/dl Albumin (3.4-5.0) g/dl Globulin gm/dL Albumin/Globulin Ratio (1-2) Lipase (73-393) U/L Meds: Medications Discontinued Medications Generic Name Dose Route Start Last Admin Trade Name Elizabeth PRN Reason Stop Dose Admin Al Hydroxide/Mg Hydroxide 30 0 ml 04/22/18 21:24 04/22/18 21:31 ml/ Lidocaine HCl 15 ml PO 04/22/18 21:25 45 ml ONETIME STA Administration Hydromorphone HCl 0.5 mg 04/22/18 21:54 04/22/18 22:04 Dilaudid IVPUSH 04/22/18 21:55 0.5 mg ONETIME ONE Administration Ondansetron HCl 4 mg 04/22/18 21:54 04/22/18 22:04 Zofran IVPUSH 04/22/18 21:55 4 mg ONETIME ONE Administration Orphenadrine Citrate 100 mg 04/22/18 23:00 04/22/18 23:14 Norflex PO 04/22/18 23:01 100 mg ONETIME STA Administration - Re-Assessments/Exams Free Text/Narrative Re-Assessment/Exam: 04/22/18 21:28 There are several features of the patient's presentation that are not concerning for cardiac, including that the pain came on suddenly, that it is a pain, not her discomfort, that is on the left side of her chest, and that it is reproducible with palpation of the left side of the chest and her left upper abdomen. Additionally, her ECG, while abnormal, does not show any ischemic changes. Because of the location of the pain, I have ordered a GI cocktail. I don't expect it to help, as the patient's pain was reproducible with palpation, but it will rule out a GI cause. 04/22/18 21:53 The GI cocktail did not help. 04/22/18 21:46 2-view chest radiograph reviewed. Cardiac silhouette is within normal limits. No pulmonary vascular congestion. No pleural effusions. No focal infiltrate. No pneumothorax. Scoliosis incidentally noted. Left-sided AICD noted. Formal read per the Radiologist pending. 04/22/18 23:00 Test results discussed with the patient and her family. Rodrigue's workup is remarkably normal. Based on her history and physical examination, her left- sided chest pain appears to be musculoskeletal in etiology. I will start the patient on Norflex, and prescribe an additional 7 days. Ordinarily, I would have the patient take [id number] ibuprofen in addition, however, because of the patient's gastric bypass, she should not take NSAIDs for a prolonged period of time. I would like the patient to follow-up with her PCP, Kia Joseph , this coming week. Departure - Departure Time of Disposition: 23:02 Disposition: Home, Self-Care 01 Condition: Good Clinical Impression: Musculoskeletal chest pain - Discharge Information Prescriptions: Orphenadrine [Norflex] 1 tab PO Q12H PRN #14 tab.er PRN Reason: Muscle Spasm Instructions: Chest Wall Pain, [id number] Referrals: PCP,Juan [Ordering Only Provider] - Kia Joseph [employer] TE[employer] [Primary Care Provider] - Forms: ED Department Discharge Additional Instructions: You were seen in the emergency room for left-sided chest pain and shortness of breath. Workup in the ER included blood work, a chest x-ray, and an ECG. Additionally, you received a GI cocktail in the ER. Your entire workup was unremarkable. You have not suffered a heart attack. You do not have pneumonia. You do not have a blood clot in your lungs. You do not have a collapsed lung. Based on your workup in the ER, your left-sided chest pain is MOST LIKELY musculoskeletal in etiology. You have been started on the muscle relaxant Norflex. A prescription for Norflex has been sent to the [facility], [address] [place] [address], located across the [address] from [facility]. The pharmacy will be open between noon and 4:00 PM tomorrow, 04/23/2018. Take one tablet of Norflex every 12 hours, as prescribed. In addition to Norflex, you may also take [id number] Tylenol as needed for discomfort. Follow-up with your PCP, Kia Joseph, this coming week. If any other problems, please do not hesitate to return to the ER. - My Orders Last 24 Hours: My Active Orders 04/22/18 21:13 EKG 12 Lead [EKG Documentation Completion] [RC] STAT 04/22/18 21:24 Chest 2V [CR] Stat - Assessment/Plan Last 24 Hours: My Active Orders 04/22/18 21:13 EKG 12 Lead [EKG Documentation Completion] [RC] STAT 04/22/18 21:24 Chest 2V [CR] Stat
[2018-04-22] MEDS ORDERED: Ondansetron 4 MG/2 ML SDV IVPUSH ONE (21:54)
[2018-04-22] MEDS ORDERED: HYDROmorphone 0.5 MG/0.5 ML SYRINGE IVPUSH ONE (21:54)
[2018-04-22] MEDS ORDERED: Orphenadrine 100 MG Tab.ER PO STA (23:00)
--- NOTE | 2018-04-24 07:07 | CR ---
Chest: Two views of the chest were obtained. Comparison: Right chest x-ray of 03/22/18. AICD is noted. Heart size and mediastinum are within normal limits. Incidental scoliosis is noted within the spine. Lungs are clear with no acute parenchymal change. Minimal scarring is noted within the lateral left costophrenic angle. Mild degenerative spurring is noted within the spine with scattered disc space narrowing. Impression: 1. Incidental findings. Nothing acute is seen on two-view chest x-ray. Diagnostic code #2
== END 2018-04-22 23:20 | disposition home or self-care (01) ==
LOC: JD.ED 21:03
DX: R07.89 Other chest pain (principal); E11.9 Type 2 diabetes mellitus without complications; Z88.8 Allergy status to other drugs, medicaments and biological substances; Z88.2 Allergy status to sulfonamides; Z79.899 Other long term (current) drug therapy; Z87.891 Personal history of nicotine dependence
CPT/HCPCS: 36415; 71046; 80053; 83690; 83735; 83880; 84484; 85007; 85027; 85379; 85610; 85730; 93005; 96374; 96375; 99285; A9270; J1170; J2405; 93010; 99284

== ENCOUNTER 2019-03-02 21:47 | Emergency (ER) | payer MEDICARE, MEDICAID ==
[2019-03-02 22:00] VITALS: BP 134/86
--- NOTE | 2019-03-02 22:17 | EDM.PDOC ---
ED HPI GENERAL MEDICAL PROBLEM - General Chief Complaint: Cardiovascular Problem Stated Complaint: THINKS SHE HAS CHF Time Seen by Provider: 03/02/19 22:14 - History of Present Illness INITIAL COMMENTS - FREE TEXT/NARRATIVE: 63-year-old female presents emergency room with fatigue This is been getting worse over the last several weeks and she's put on a few pounds. She has not been sleeping well at night because of hip arthritis she is in the process of getting this worked up. She is not had any chest pain chest pressure breathing difficulties or shortness of breath. No nausea vomiting constipation or diarrhea. Isn't aware of any burning or frequency with urination general she is tired and does not feel well. - Related Data Allergies Allergy/AdvReac Type Severity Reaction Status Date / Time Pyrazoles Allergy unknown Verified 09/07/18 16:34 regadenoson [From Lexiscan] Allergy Rash Verified 09/07/18 16:34 spironolactone Allergy Cannot Verified 09/07/18 16:34 Remember Sulfa (Sulfonamide Allergy unknown Verified 09/07/18 16:34 Antibiotics) celecoxib [From Celebrex] AdvReac weight gain Verified 09/07/18 16:34 rofecoxib AdvReac weight gain Verified 09/07/18 16:34 Home Meds: Home Meds Vitamin B Complex Vit C No.4 [Super B Complex] 1 tab PO DAILY 02/09/14 [History] atorvaSTATin [Lipitor] 10 mg PO DAILY 02/09/14 [History] Cholecalciferol (Vitamin D3) [Vitamin D3] 4,000 units PO DAILY 10/05/14 [History ] Magnesium 500 mg PO DAILY 02/22/17 [History] traZODone 150 mg PO BEDTIME 10/23/17 [History] DULoxetine HCl [Cymbalta] 30 mg PO DAILY 04/22/18 [History] Denosumab [Prolia] 1 injection SQ ASDIRECTED 04/22/18 [History] Diclofenac Sodium 100 gm TP QID PRN 04/22/18 [History] Fluticasone Propionate [24 Hour Allergy Relief] 15.8 ml NS BID 04/22/18 [History ] Hyoscyamine Sulfate [Anaspaz] 0.125 mg PO Q4HR PRN 04/22/18 [History] Orphenadrine [Norflex] 1 tab PO Q12H PRN #14 tab.er 04/22/18 [Rx] Pantoprazole Sodium [Protonix] 40 mg PO DAILY 04/22/18 [History] Levofloxacin [Levaquin] 500 mg PO DAILY #10 tablet 09/07/18 [Rx] metroNIDAZOLE [Flagyl] 500 mg PO Q8H #20 tab 09/07/18 [Rx] Nitrofurantoin Monohyd/M-Cryst [Macrobid 100 mg Capsule] 100 mg PO Q12H #13 capsule 03/03/19 [Rx] Past Medical History HEENT History: Reports: Impaired Vision Cardiovascular History: Reports: Afib, Cardiomyopathy, Heart Failure, High Cholesterol, Hypertension Other Cardiovascular History: grade 3 heart failure Respiratory History: Reports: Bronchitis, Recurrent, Pneumonia, Recurrent, SOB Gastrointestinal History: Reports: Other (See Below) Other Gastrointestinal History: hx diverticulitis in past and esphageal spasms Genitourinary History: Reports: Renal Calculus 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: Musculoskeletal History: Reports: Arthritis, Fibromyalgia Neurological History: Reports: Migraines Psychiatric History: Reports: Anxiety, Depression, Other (See Below) Other Psychiatric History: difficulty sleeping Endocrine/Metabolic History: Reports: Diabetes, Type II Hematologic History: Reports: Anemia - Past Surgical History HEENT Surgical History: Reports: Cataract Surgery, Oral Surgery Cardiovascular Surgical History: Reports: AICD GI Surgical History: Reports: Appendectomy, Bariatric Procedure, Cholecystectomy , Hernia, Abdominal Female Surgical History: Reports: Section, Hysterectomy, Salpingo- Oophorectomy Social & Family History - Family History Family Medical History: Noncontributory - Tobacco Use Smoking Status *Q: Former Smoker Used Tobacco, but Quit: Yes Month/Year Tobacco Last Used: 2012 - Caffeine Use Caffeine Use: Reports: Coffee - Recreational Drug Use Recreational Drug Use: No - Living Situation & Occupation Living situation: Reports: , Alone Occupation: Retired ED ROS GENERAL - Review of Systems Review Of Systems: See Below Constitutional: Reports: Weakness, Fatigue. Denies: Night Sweats, Diaphoresis HEENT: Reports: No Symptoms Respiratory: Reports: Shortness of Breath Cardiovascular: Reports: Dyspnea on Exertion. Denies: Chest Pain Endocrine: Reports: No Symptoms GI/Abdominal: Reports: No Symptoms : Reports: No Symptoms Musculoskeletal: Reports: Other (Hip pain). Denies: No Symptoms Skin: Reports: No Symptoms Neurological: Reports: No Symptoms, Other (She has fibromyalgia) Psychiatric: Reports: No Symptoms Hematologic/Lymphatic: Reports: No Symptoms ED EXAM, GENERAL - Physical Exam Exam: See Below Exam Limited By: No Limitations General Appearance: Alert, No Apparent Distress Ears: Normal External Exam, Normal Canal, Hearing Grossly Normal, Normal TMs Ear Exam: Bilateral Ear: Auricle Normal, Canal Normal, TM normal Nose: Normal Inspection, Normal Mucosa, No Blood Throat/Mouth: Normal Inspection, Normal Lips, Normal Teeth, Normal Gums, Normal Oropharynx, Normal Voice, No Airway Compromise Head: Atraumatic, Normocephalic Neck: Normal Inspection, Supple, Non-Tender, Full Range of Motion Respiratory/Chest: No Respiratory Distress, Lungs Clear, Normal Breath Sounds, No Accessory Muscle Use, Chest Non-Tender Cardiovascular: Normal Peripheral Pulses, Regular Rate, Rhythm, No Edema, No Gallop, No JVD, No Murmur, No Rub GI/Abdominal: Normal Bowel Sounds, Soft, Non-Tender, No Organomegaly, No Distention, No Abnormal Bruit, No Mass Back Exam: Normal Inspection. No: CVA Tenderness (L), CVA Tenderness (R) Extremities: Normal Inspection, Normal Range of Motion, Non-Tender Neurological: Alert, Oriented, Normal Cognition Psychiatric: Normal Affect Lymphatic: No Adenopathy EKG INTERPRETATION Rhythm: Other (Sinus with first-degree AV block borderline) [place]: Normal P-Wave: Present QRS: Normal ST-T: Normal QT: Normal EKG Interpretation Comments: EKG with borderline first-degree AV block Course - Vital Signs Last Recorded V/S: Last Vital Signs Temp 36.4 C 03/02/19 21:55 Pulse 60 03/02/19 21:55 Resp 16 03/02/19 21:55 BP 134/86 03/02/19 21:55 Pulse Ox 100 03/02/19 21:55 - Orders/Labs/Meds Orders: Active Orders 24 hr Category Date Time Status EKG Documentation Completion [RC] STAT Care 03/02/19 22:25 Active Chest 2V [CR] Stat Exams 03/02/19 22:25 Taken CULTURE URINE [RM] Stat Lab 03/03/19 01:12 Ordered Labs: Laboratory Tests 03/02/19 03/02/19 03/02/19 Range/Units 22:37 22:37 22:37 WBC 4.94 (3.98-10.04) K/mm3 RBC 4.19 (3.98-5.22) M/mm3 Hgb 11.5 (11.2-15.7) gm/L Hct 37.0 (34.1-44.9) % MCV 88.3 (79.4-94.8) fl MCH 27.4 (25.6-32.2) pg MCHC 31.1 L (32.2-35.5) g/dl RDW Std Deviation 44.1 (36.4-46.3) fL Plt Count 222 (182-369) K/mm3 MPV 9.2 L (9.4-12.3) fl Neutrophils % (Manual) 40 (40-60) % Band Neutrophils % 0 (0-10) % Lymphocytes % (Manual) 37 (20-40) % Atypical Lymphs % 11 % Monocytes % (Manual) 9 (2-10) % Eosinophils % (Manual) 3 (0.7-5.8) % Basophils % (Manual) 0 L (0.1-1.2) Platelet Estimate Adequate Plt Morphology Comment Normal Hypochromasia 1+ slight RBC Morph Comment Not Reportable Sodium 142 (136-145) mEq/L Potassium 3.9 (3.5-5.1) mEq/L Chloride 107 (98-107) mEq/L Carbon Dioxide 29 (21-32) mEq/L Anion Gap 9.9 (5-15) BUN 13 (7-18) mg/dL Creatinine 0.8 (0.55-1.02) mg/dL Est Cr Clr Drug Dosing 65.62 mL/min Estimated GFR (MDRD) > 60 (>60) mL/min BUN/Creatinine Ratio 16.3 (14-18) Glucose 126 H (80-115) mg/dL Calcium 9.5 (8.5-10.1) mg/dL Total Bilirubin 0.2 (0.2-1.0) mg/dL AST 41 H (15-37) U/L ALT 62 H (14-59) U/L Alkaline Phosphatase 77 (46-116) U/L Troponin I < 0.017 (0.00-0.056) ng/mL NT-Pro-B Natriuret Pep 62 (0-125) pg/mL Total Protein 6.5 (6.4-8.2) g/dl Albumin 3.3 L (3.4-5.0) g/dl Globulin 3.2 gm/dL Albumin/Globulin Ratio 1.0 (1-2) TSH 3rd Generation 3.503 (0.358-3.74) uIU/mL Urine Color (Yellow) Urine Appearance (Clear) Urine pH (5.0-8.0) Ur Specific [place] (1.005-1.030) Urine Protein (Negative) Urine Glucose (UA) (Negative) Urine Ketones (Negative) Urine Occult Blood (Negative) Urine Nitrite (Negative) Urine Bilirubin (Negative) Urine Urobilinogen (0.2-1.0) Ur Leukocyte Esterase (Negative) Urine RBC (0-5) /hpf Urine WBC (0-5) /hpf Urine WBC Clumps (NOT SEEN) /hpf Ur Epithelial Cells (0-5) /hpf Urine Bacteria (FEW) /hpf Urine Mucus (FEW) /hpf 03/02/19 Range/Units 23:50 WBC (3.98-10.04) K/mm3 RBC (3.98-5.22) M/mm3 Hgb (11.2-15.7) gm/L Hct (34.1-44.9) % MCV (79.4-94.8) fl MCH (25.6-32.2) pg MCHC (32.2-35.5) g/dl RDW Std Deviation (36.4-46.3) fL Plt Count (182-369) K/mm3 MPV (9.4-12.3) fl Neutrophils % (Manual) (40-60) % Band Neutrophils % (0-10) % Lymphocytes % (Manual) (20-40) % Atypical Lymphs % % Monocytes % (Manual) (2-10) % Eosinophils % (Manual) (0.7-5.8) % Basophils % (Manual) (0.1-1.2) Platelet Estimate Plt Morphology Comment Hypochromasia RBC Morph Comment Sodium (136-145) mEq/L Potassium (3.5-5.1) mEq/L Chloride (98-107) mEq/L Carbon Dioxide (21-32) mEq/L Anion Gap (5-15) BUN (7-18) mg/dL Creatinine (0.55-1.02) mg/dL Est Cr Clr Drug Dosing mL/min Estimated GFR (MDRD) (>60) mL/min BUN/Creatinine Ratio (14-18) Glucose (80-115) mg/dL Calcium (8.5-10.1) mg/dL Total Bilirubin (0.2-1.0) mg/dL AST (15-37) U/L ALT (14-59) U/L Alkaline Phosphatase (46-116) U/L Troponin I (0.00-0.056) ng/mL NT-Pro-B Natriuret Pep (0-125) pg/mL Total Protein (6.4-8.2) g/dl Albumin (3.4-5.0) g/dl Globulin gm/dL Albumin/Globulin Ratio (1-2) TSH 3rd Generation (0.358-3.74) uIU/mL Urine Color Yellow (Yellow) Urine Appearance Slt cloudy H (Clear) Urine pH 7.0 (5.0-8.0) Ur Specific [place] 1.020 (1.005-1.030) Urine Protein Negative (Negative) Urine Glucose (UA) Negative (Negative) Urine Ketones Negative (Negative) Urine Occult Blood Negative (Negative) Urine Nitrite Positive H (Negative) Urine Bilirubin Negative (Negative) Urine Urobilinogen 0.2 (0.2-1.0) Ur Leukocyte Esterase 1+ H (Negative) Urine RBC 0-5 (0-5) /hpf Urine WBC 10-20 H (0-5) /hpf Urine WBC Clumps Few (NOT SEEN) /hpf Ur Epithelial Cells 0-5 (0-5) /hpf Urine Bacteria Moderate H (FEW) /hpf Urine Mucus Rare (FEW) /hpf Meds: Medications Discontinued Medications Generic Name Dose Route Start Last Admin Trade Name Freq PRN Reason Stop Dose Admin Nitrofurantoin Macrocrystals 100 mg 03/03/19 01:18 Macrobid PO 03/03/19 01:19 ONETIME ONE - Re-Assessments/Exams Free Text/Narrative Re-Assessment/Exam: 03/02/19 23:48 Chest x-ray is unremarkable laboratory evaluation is unrevealing EKG shows no acute changes however she does have first-degree AV block 03/03/19 01:18 Urinalysis is possibly suggestive of a UTI I had a long discussion with patient seems to be her biggest problem is her hip pain keeping her up at night or not get any sleep she will follow up with her regular provider for that she'll be started on Macrobid Departure - Departure Time of Disposition: : Disposition: Home, Self-Care 01 Clinical Impression: Urinary tract infection, Cardiomyopathy Prescriptions: Nitrofurantoin Monohyd/M-Cryst [Macrobid 100 mg Capsule] 100 mg PO Q12H #13 capsule Referrals: Kia Joseph, [employer] [Primary Care Provider] - Forms: ED Department Discharge Additional Instructions: Return to emergency room if any questions problems worsening symptoms. Follow-up with your regular provider so you can discuss your hip pain and lack of sleep issues. Take the antibiotics, the Macrobid, one twice daily until all gone. Follow-up with your provider 3-4 days after finishing the antibiotics - My Orders Last 24 Hours: My Active Orders 03/02/19 22:25 EKG Documentation Completion [RC] STAT Chest 2V [CR] Stat 03/03/19 01:12 CULTURE URINE [RM] Stat - Assessment/Plan Last 24 Hours: My Active Orders 03/02/19 22:25 EKG Documentation Completion [RC] STAT Chest 2V [CR] Stat 03/03/19 01:12 CULTURE URINE [RM] Stat
[2019-03-03] MEDS ORDERED: Nitrofurantoin Monohydrate/Macrocrystalline 100 MG Cap PO ONE (01:18)
--- NOTE | 2019-03-03 10:55 | CR ---
Chest: Two views of the chest were obtained. Comparison: Previous chest x-ray of 04/22/18. AICD is present. Slight scarring is noted along the left hemidiaphragm extending into the lateral left costophrenic angle. Lungs are clear with no acute parenchymal change. Degenerative endplate spurring is noted within the spine with scattered disc space narrowing and mild scoliosis. Heart size is normal. Upper mediastinum is also normal. Surgical clips are seen within the upper abdomen. Impression: 1. Incidental findings. Nothing acute is identified. Diagnostic code #2
== END 2019-03-03 01:30 | disposition home or self-care (01) ==
LOC: JD.ED 21:47
DX: N39.0 Urinary tract infection, site not specified (principal); I42.9 Cardiomyopathy, unspecified; I48.91 Unspecified atrial fibrillation; I11.0 Hypertensive heart disease with heart failure; I50.9 Heart failure, unspecified; E78.00 Pure hypercholesterolemia, unspecified; F41.9 Anxiety disorder, unspecified; F32.9 Major depressive disorder, single episode, unspecified; E11.9 Type 2 diabetes mellitus without complications; Z87.891 Personal history of nicotine dependence; Z88.8 Allergy status to other drugs, medicaments and biological substances; Z79.899 Other long term (current) drug therapy
CPT/HCPCS: 36415; 71046; 80053; 81001; 83880; 84443; 84484; 85007; 85027; 87086; 87088; 87186; 93005; 99284; A9270; 93010; 99283

== ENCOUNTER 2019-04-19 20:57 | Emergency (ER) | payer MEDICARE, MEDICAID ==
[2019-04-19 21:08] VITALS: BP 126/103
--- NOTE | 2019-04-19 21:41 | EDM.PDOC ---
ED HPI GENERAL MEDICAL PROBLEM - General Chief Complaint: Cardiovascular Problem Stated Complaint: SOB/HEART ISSUES Time Seen by Provider: 04/19/19 21:09 Source of Information: Reports: Patient, RN Notes Reviewed History Limitations: Reports: No Limitations - History of Present Illness INITIAL COMMENTS - FREE TEXT/NARRATIVE: The patient states that she developed dyspnea and palpitations - the sensation of a strong, hard, fast, and irregular heartbeat, around 20:15 this evening. She denies associated chest pain, nausea, or diaphoresis. She states that she feels anxious. She states that she has had similar symptoms numerous times in the past, that she believes is due to atrial fibrillation or her cardiomyopathy. Review of prior medical records finds that the patient underwent a Holter monitor evaluation on 06/13/2017 and 03/24/18. In both cases, the patient had frequent symptomatic PVCs, but no runs of V. tach, and no atrial fibrillation. The patient has received 11 ECGs at this facility, all of which I reviewed. On the ECG from 10/23/2017, the computer read her rhythm as atrial fibrillation, but in fact it was actually sinus tachycardia. No atrial fibrillation was found on any of the other ECGs, either. The patient tells me that her atrial fibrillation was diagnosed in [place], and that she has seen an EP Grocery Store Manager , but by the history that the patient provided me, atrial fibrillation was unable to be induced, therefore no cardiac ablation was performed. The patient has a history of viral cardiomyopathy with congestive heart failure in 2010, but it subsequently resolved. She received an AICD in 2012 or 2013, although she is not really sure why. The patient's PCP is Kia Joseph NP. Her Grocery Store Manager is Dr. Cate Luna. Her EP Grocery Store Manager is Dr. Rakesh Uriostegui. - Related Data Allergies Allergy/AdvReac Type Severity Reaction Status Date / Time Pyrazoles Allergy unknown Verified 04/19/19 21:09 regadenoson [From Lexiscan] Allergy Rash Verified 04/19/19 21:09 spironolactone Allergy Cannot Verified 04/19/19 21:09 Remember Sulfa (Sulfonamide Allergy unknown Verified 04/19/19 21:09 Antibiotics) celecoxib [From Celebrex] AdvReac weight gain Verified 04/19/19 21:09 rofecoxib AdvReac weight gain Verified 04/19/19 21:09 Home Meds: Home Meds Vitamin B Complex Vit C No.4 [Super B Complex] 1 tab PO DAILY 02/09/14 [History] atorvaSTATin [Lipitor] 10 mg PO DAILY 02/09/14 [History] Cholecalciferol (Vitamin D3) [Vitamin D3] 4,000 units PO DAILY 10/05/14 [History ] Magnesium 500 mg PO DAILY 02/22/17 [History] traZODone 150 mg PO BEDTIME 10/23/17 [History] DULoxetine HCl [Cymbalta] 30 mg PO DAILY 04/22/18 [History] Denosumab [Prolia] 1 injection SQ ASDIRECTED 04/22/18 [History] Diclofenac Sodium 100 gm TP QID PRN 04/22/18 [History] Fluticasone Propionate [24 Hour Allergy Relief] 15.8 ml NS BID 04/22/18 [History ] Pantoprazole Sodium [Protonix] 40 mg PO DAILY 04/22/18 [History] Thiamine HCl [Vitamin B-1] 125 mg PO DAILY 04/19/19 [History] metFORMIN [Glucophage] 1,000 mg PO WITHDINNER 04/19/19 [History] metFORMIN [Glucophage] 500 mg PO DAILY 04/19/19 [History] oxyCODONE HCl/Acetaminophen [Percocet 5-325 mg Tablet] 1.5 each PO BID 04/19/19 [History] Past Medical History HEENT History: Reports: Impaired Vision Cardiovascular History: Reports: Afib (paroxysmal), Cardiomyopathy (viral, resolved), Heart Failure (2 viral CMP, resolved), High Cholesterol, Hypertension (untreated) Gastrointestinal History: Reports: Diverticulosis (diverticulitis x 2) Genitourinary History: Reports: Renal Calculus FUNERAL DIRECTOR History: Reports: Musculoskeletal History: Reports: Arthritis Psychiatric History: Reports: Anxiety, Depression, Other (See Below) ( Fibromyalgia. Insomnia.) Endocrine/Metabolic History: Reports: Diabetes, Type II, Osteoporosis Hematologic History: Reports: Anemia - Past Surgical History HEENT Surgical History: Reports: Cataract Surgery, Oral Surgery (wisdom teeth extraction) Cardiovascular Surgical History: Reports: AICD (2012 or 2013), Other (See Below ) (Coronary angiogram 2012) GI Surgical History: Reports: Appendectomy, Bariatric Procedure (gastric bypass February 2016), Cholecystectomy (2016), EGD (x 1), Hernia, Abdominal (incisional) Female Surgical History: Reports: Section (x 2), Hysterectomy ( complete), Salpingo-Oophorectomy (bilateral) Musculoskeletal Surgical History: Reports: Ganglion Cyst (right wrist), Other ( See Below) (Left knee Gillespie cyst) Social & Family History - Family History Family Medical History: Noncontributory - Tobacco Use Smoking Status *Q: Former Smoker Years of Tobacco use: 35 Packs/Tins Daily: 1 Month/Year Tobacco Last Used: Quit 2012 - Caffeine Use Caffeine Use: Reports: Coffee - Alcohol Use Alcohol Use History: No - Recreational Drug Use Recreational Drug Use: No - Living Situation & Occupation Living situation: Reports: , Alone Occupation: Retired ED ROS GENERAL - Review of Systems Review Of Systems: ROS reveals no pertinent complaints other than HPI. ED EXAM, GENERAL - Physical Exam Exam: See Below Exam Limited By: No Limitations General Appearance: Alert, WD/WN, Anxious Eye Exam: Bilateral Eye: EOMI, Normal Inspection Ears: Normal External Exam, Hearing Grossly Normal Nose: Normal Inspection Throat/Mouth: Normal Inspection, Normal Lips, Normal Voice, No Airway Compromise Head: Atraumatic, Normocephalic Neck: Normal Inspection, Full Range of Motion Respiratory/Chest: No Respiratory Distress, Lungs Clear, Normal Breath Sounds, No Accessory Muscle Use Cardiovascular: Normal Peripheral Pulses, Regular Rate, Rhythm, No Edema, No Gallop, No JVD, No Murmur, No Rub Peripheral Pulses: 4+: Radial (L), Radial (R) GI/Abdominal: Normal Bowel Sounds, Soft, Non-Tender, No Organomegaly, No Distention, No Abnormal Bruit, No Mass, Other (Obese) (Female) Exam: Deferred Rectal (Female) Exam: Deferred Back Exam: Normal Inspection, Full Range of Motion, NT Extremities: Normal Inspection, Normal Range of Motion, No Pedal Edema, Normal Capillary Refill Neurological: Alert, Oriented, Normal Cognition, No Motor/Sensory Deficits Psychiatric: Normal Affect Skin Exam: Warm, Dry, Intact, Normal Color, No Rash EKG INTERPRETATION EKG Date: 04/19/19 Time: 21:01 Rhythm: NSR Rate (Beats/Min): 67 [place]: Normal P-Wave: Present (1 AVB) QRS: Normal ST-T: Normal QT: Normal Comparison: No Change (03/02/2019) Course - Vital Signs Last Recorded V/S: Last Vital Signs Temp 36.2 C 04/19/19 21:03 Pulse 73 04/19/19 21:03 Resp 20 04/19/19 21:03 BP 126/103 H 04/19/19 21:03 Pulse Ox 100 04/19/19 21:03 Orthostatic Blood Pressure [ 123/67 Standing] Orthostatic Blood Pressure [ 117/73 Supine] - Orders/Labs/Meds Orders: Active Orders 24 hr Category Date Time Status EKG Documentation Completion [RC] STAT Care 04/19/19 21:11 Active Orthostatic Vital Signs [RC] STAT Care 04/19/19 21:38 Active Orthostatic Vital Signs [RC] STAT Care 04/19/19 21:57 Active Chest 2V [CR] Stat Exams 04/19/19 21:38 Taken Labs: Laboratory Tests 04/19/19 04/19/19 04/19/19 Range/Units 21:38 21:45 21:45 WBC 6.73 (3.98-10.04) K/mm3 RBC 4.43 (3.98-5.22) M/mm3 Hgb 12.5 (11.2-15.7) gm/L Hct 39.0 (34.1-44.9) % MCV 88.0 (79.4-94.8) fl MCH 28.2 (25.6-32.2) pg MCHC 32.1 L (32.2-35.5) g/dl RDW Std Deviation 46.6 H (36.4-46.3) fL Plt Count 259 (182-369) K/mm3 MPV 9.4 (9.4-12.3) fl Neutrophils % (Manual) 59 (40-60) % Band Neutrophils % 0 (0-10) % Lymphocytes % (Manual) 36 (20-40) % Atypical Lymphs % 0 % Monocytes % (Manual) 3 (2-10) % Eosinophils % (Manual) 1 (0.7-5.8) % Basophils % (Manual) 1 (0.1-1.2) Platelet Estimate Adequate RBC Morph Comment Normal D-Dimer, Quantitative 0.21 (0.19-0.50) mg/L Puncture Site Rt radial ABG pH 7.51 H (7.35-7.45) ABG pCO2 30.1 L (35.0-45.0) mmHg ABG pO2 78.0 L (80.0-100.0) mmHg ABG HCO3 24.1 (22.0-26.0) meq/L ABG O2 Saturation 95.8 L (96.0-97.0) % ABG Base Excess 2.1 H (-2-2.0) Faustino Test Positive A-a Gradient 19 mmHg O2 Delivery Device Room air Oxygen Flow Rate 0.0 FiO2 21.00 (21.00-100.00) % Sodium (136-145) mEq/L Potassium (3.5-5.1) mEq/L Chloride (98-107) mEq/L Carbon Dioxide (21-32) mEq/L Anion Gap (5-15) BUN (7-18) mg/dL Creatinine (0.55-1.02) mg/dL Est Cr Clr Drug Dosing mL/min Estimated GFR (MDRD) (>60) mL/min BUN/Creatinine Ratio (14-18) Glucose (80-115) mg/dL Calcium (8.5-10.1) mg/dL Magnesium (1.8-2.4) mg/dl Total Bilirubin (0.2-1.0) mg/dL AST (15-37) U/L ALT (14-59) U/L Alkaline Phosphatase (46-116) U/L Troponin I (0.00-0.056) ng/mL NT-Pro-B Natriuret Pep (0-125) pg/mL Total Protein (6.4-8.2) g/dl Albumin (3.4-5.0) g/dl Globulin gm/dL Albumin/Globulin Ratio (1-2) TSH 3rd Generation (0.358-3.74) uIU/mL Urine Color (Yellow) Urine Appearance (Clear) Urine pH (5.0-8.0) Ur Specific [place] (1.005-1.030) Urine Protein (Negative) Urine Glucose (UA) (Negative) Urine Ketones (Negative) Urine Occult Blood (Negative) Urine Nitrite (Negative) Urine Bilirubin (Negative) Urine Urobilinogen (0.2-1.0) Ur Leukocyte Esterase (Negative) Urine RBC (0-5) /hpf Urine WBC (0-5) /hpf Ur Epithelial Cells (0-5) /hpf Urine Bacteria (FEW) /hpf Urine Mucus (FEW) /hpf 04/19/19 04/19/19 04/19/19 Range/Units 21:45 21:45 22:30 WBC (3.98-10.04) K/mm3 RBC (3.98-5.22) M/mm3 Hgb (11.2-15.7) gm/L Hct (34.1-44.9) % MCV (79.4-94.8) fl MCH (25.6-32.2) pg MCHC (32.2-35.5) g/dl RDW Std Deviation (36.4-46.3) fL Plt Count (182-369) K/mm3 MPV (9.4-12.3) fl Neutrophils % (Manual) (40-60) % Band Neutrophils % (0-10) % Lymphocytes % (Manual) (20-40) % Atypical Lymphs % % Monocytes % (Manual) (2-10) % Eosinophils % (Manual) (0.7-5.8) % Basophils % (Manual) (0.1-1.2) Platelet Estimate RBC Morph Comment D-Dimer, Quantitative (0.19-0.50) mg/L Puncture Site ABG pH (7.35-7.45) ABG pCO2 (35.0-45.0) mmHg ABG pO2 (80.0-100.0) mmHg ABG HCO3 (22.0-26.0) meq/L ABG O2 Saturation (96.0-97.0) % ABG Base Excess (-2-2.0) Faustino Test A-a Gradient mmHg O2 Delivery Device Oxygen Flow Rate FiO2 (21.00-100.00) % Sodium 142 (136-145) mEq/L Potassium 4.1 (3.5-5.1) mEq/L Chloride 104 (98-107) mEq/L Carbon Dioxide 29 (21-32) mEq/L Anion Gap 13.1 (5-15) BUN 20 H (7-18) mg/dL Creatinine 0.8 (0.55-1.02) mg/dL Est Cr Clr Drug Dosing 51.03 mL/min Estimated GFR (MDRD) > 60 (>60) mL/min BUN/Creatinine Ratio 25.0 H (14-18) Glucose 128 H (80-115) mg/dL Calcium 9.4 (8.5-10.1) mg/dL Magnesium 1.8 (1.8-2.4) mg/dl Total Bilirubin 0.2 (0.2-1.0) mg/dL AST 42 H (15-37) U/L ALT 72 H (14-59) U/L Alkaline Phosphatase 99 (46-116) U/L Troponin I < 0.017 (0.00-0.056) ng/mL NT-Pro-B Natriuret Pep 91 (0-125) pg/mL Total Protein 7.0 (6.4-8.2) g/dl Albumin 3.9 (3.4-5.0) g/dl Globulin 3.1 gm/dL Albumin/Globulin Ratio 1.3 (1-2) TSH 3rd Generation 2.779 (0.358-3.74) uIU/mL Urine Color Yellow (Yellow) Urine Appearance Slt cloudy H (Clear) Urine pH 8.5 H (5.0-8.0) Ur Specific [place] 1.020 (1.005-1.030) Urine Protein Trace H (Negative) Urine Glucose (UA) Negative (Negative) Urine Ketones Negative (Negative) Urine Occult Blood Trace-intact H (Negative) Urine Nitrite Negative (Negative) Urine Bilirubin Negative (Negative) Urine Urobilinogen 0.2 (0.2-1.0) Ur Leukocyte Esterase 1+ H (Negative) Urine RBC 5-10 H (0-5) /hpf Urine WBC 0-5 (0-5) /hpf Ur Epithelial Cells 0-5 (0-5) /hpf Urine Bacteria Few (FEW) /hpf Urine Mucus Few (FEW) /hpf Meds: Medications Discontinued Medications Generic Name Dose Route Start Last Admin Trade Name Freq PRN Reason Stop Dose Admin Sodium Chloride 1,000 mls @ 999 mls/hr 04/19/19 21:57 04/19/19 22:05 Normal Saline IV 04/19/19 22:57 999 mls/hr ONETIME ONE Administration - Re-Assessments/Exams Free Text/Narrative Re-Assessment/Exam: 04/19/19 21:39 Despite the patient feeling rapid and irregular palpitations, her ECG here in the ED is completely normal, with a normal sinus rhythm of 67 and no PACs or PVCs. Despite feeling dyspneic, the patient's oxygen saturation is 100% on room air, and her lungs are entirely clear to auscultation bilaterally. I suspect that the patient's symptoms are due to anxiety, however, to be sure that there are no more significant medical problems, have ordered a workup that includes blood work, an ABG, a urinalysis, a chest x-ray, and orthostatics. 04/19/19 21:56 The patient is orthostatic. I will order 1 L of IVF, followed by repeat orthostatics. 04/19/19 22:44 2-view chest radiograph reviewed. The cardiac silhouette is within normal limits. No pulmonary vascular congestion. No pleural effusions. No focal infiltrate. No pneumothorax. A single lead left-sided AICD is incidentally noted. Scoliosis is noted. Formal read per the Radiologist pending. The CBC is unremarkable. The CMP is remarkable for a blood glucose of 128, but is otherwise unremarkable. The magnesium level is normal. The troponin is undetectably low. The TSH is within normal limits. The D-dimer is within normal limits. The BNP is within normal limits. The ABG demonstrates an acute respiratory alkalosis with normal oxygenation. Urinalysis results are still pending. 04/19/19 23:22 The urinalysis is unremarkable. Following a 1 L bolus of IVF, the patient is no longer orthostatic. 04/20/19 00:23 Test results discussed with the patient and her daughter. As above, the ABG demonstrated that the patient is hyperventilating, yet no known causes for hyperventilation, such as a metabolic acidosis, hypocalcemia, hypoglycemia, hyperthyroidism, liver failure, severe anemia, sepsis, acute coronary event, pneumothorax, pneumonia, dysrhythmia, PE, or CHF were found. By a process of elimination, the patient's hyperventilation is most likely due to inadequately treated anxiety. I recommended that the patient follow-up with her PCP to discuss some long-term treatment options for anxiety. The patient stated that she has an appointment to see her PCP this coming 04/23/2019. Departure - Departure Time of Disposition: 00:25 Disposition: Home, Self-Care 01 Condition: Good Clinical Impression: Orthostasis, Hyperventilation syndrome Instructions: Hyperventilation, Hypotension, [id number] Referrals: Kia Joseph CHICKEN BUYER [Primary Care Provider] - Cate Luna MD [Physician] - Rakesh Uriostegui [Ordering Only Provider] - Forms: ED Department Discharge Additional Instructions: You were seen in the emergency room for shortness of breath and palpitations. Workup in the ER included blood work, an arterial blood gas, a urinalysis, a chest x-ray, positional blood pressure checks, and an ECG. Your blood pressure drop excessively between lying and standing. You were given 1 L of IV fluid, and this was corrected. Your arterial blood gas confirmed that you were hyperventilating. Medical causes for hyperventilation, such as metabolic acidosis, hypocalcemia, hypoglycemia, hyperthyroidism, liver failure, severe anemia, sepsis, acute coronary event, pneumothorax, pneumonia, dysrhythmia, pulmonary embolus, and congestive heart failure were all ruled out. By a process of elimination, your hyperventilation appears to have been due to inadequately treated anxiety. We recommend that you follow-up with your PCP, Kia Joseph NP, at your previously scheduled appointment this coming Tuesday, , to discuss treatment options for anxiety. If any other problems, please do not hesitate to return to the ER. - My Orders Last 24 Hours: My Active Orders 04/19/19 21:11 EKG Documentation Completion [RC] STAT 04/19/19 21:38 Orthostatic Vital Signs [RC] STAT Chest 2V [CR] Stat 04/19/19 21:57 Orthostatic Vital Signs [RC] STAT - Assessment/Plan Last 24 Hours: My Active Orders 04/19/19 21:11 EKG Documentation Completion [RC] STAT 04/19/19 21:38 Orthostatic Vital Signs [RC] STAT Chest 2V [CR] Stat 04/19/19 21:57 Orthostatic Vital Signs [RC] STAT
[2019-04-19] MEDS ORDERED: Sodium Chloride 0.9% 1,000 ML IV ONE (21:57)
--- NOTE | 2019-04-20 07:47 | CR ---
Chest: Two views of the chest were obtained. Comparison: Previous chest x-ray of 03/02/19. Heart size and mediastinum are normal. AICD is present. Minimal blunting of the lateral left costophrenic angle is seen which is felt to be chronic. Lungs otherwise are clear. Scoliosis is noted within the spine. Diffuse endplate spurring is noted within the spine. Impression: 1. Incidental findings. Nothing acute is seen. Diagnostic code #2
== END 2019-04-20 00:40 | disposition home or self-care (01) ==
LOC: JD.ED 20:57
DX: I95.1 Orthostatic hypotension (principal); F45.8 Other somatoform disorders; I48.91 Unspecified atrial fibrillation; I10 Essential (primary) hypertension; E78.00 Pure hypercholesterolemia, unspecified; F41.9 Anxiety disorder, unspecified; F32.9 Major depressive disorder, single episode, unspecified; E11.9 Type 2 diabetes mellitus without complications; Z87.891 Personal history of nicotine dependence; Z79.899 Other long term (current) drug therapy; Z88.8 Allergy status to other drugs, medicaments and biological substances; Z79.84 Long term (current) use of oral hypoglycemic drugs; Z88.2 Allergy status to sulfonamides; Z88.1 Allergy status to other antibiotic agents
CPT/HCPCS: 36415; 36600; 71046; 80053; 81001; 82803; 83735; 83880; 84443; 84484; 85007; 85027; 85379; 93005; 96360; 99285; J7040; 93010; 99283

== ENCOUNTER 2019-11-21 14:17 | Emergency (ER) | payer MEDICARE, MEDICAID ==
[2019-11-21] MEDS ORDERED: Sodium Chloride 0.9% 10 ML Syringe FLUSH PRN (14:44)
[2019-11-21] MEDS: Metoprolol Tartrate 5 MG/5 ML SDV IVPUSH ONE ×2 (14:52→15:27)
[2019-11-21] MEDS ORDERED: Sodium Chloride 0.9% 1,000 ML IV ONE (15:20)
[2019-11-21 15:28] VITALS: BP 106/53; PULSE 86
--- NOTE | 2019-11-21 15:36 | CR ---
Chest: Portable view of the chest was obtained. Comparison: Prior chest x-ray of 04/19/19. Chronic blunting appears to be present within the lateral left costophrenic angle. Lungs show no acute parenchymal change. AICD is present. Heart size does not appear enlarged. Upper mediastinum is normal. Scoliosis is noted within the spine. Surgical clips are seen from prior cholecystectomy. Impression: 1. Findings as noted above. 2. Nothing acute is appreciated on portable chest x-ray. Diagnostic code #2 Study was dictated in [place] Standard Time
--- NOTE | 2019-11-21 15:38 | EDM.PDOC ---
ED HPI GENERAL MEDICAL PROBLEM - General Chief Complaint: Cardiovascular Problem Stated Complaint: SLOW HEART RATE SENT FROM [facility] Time Seen by Provider: 11/21/19 14:34 Source of Information: Reports: Patient, RN Notes Reviewed - History of Present Illness INITIAL COMMENTS - FREE TEXT/NARRATIVE: 63 year old female comes in with sx of generalized weakness, palpitations. She has been ill for about the past 4 to 5 days with cough, sore throat, nasal radhika., fever, chills, myalgias. She id not get a flu shot this yr. She did go the [facility] to day, noted to have frequent PVC's and transferred here for further eval. She does have hx of COPD and CHF. She has hx of cardiomyopathy, she does have an internal defibrillator. She did quit smoking about 7 years ago. - Related Data Allergies Allergy/AdvReac Type Severity Reaction Status Date / Time Pyrazoles Allergy unknown Verified 11/21/19 14:31 regadenoson [From Lexiscan] Allergy Rash Verified 11/21/19 14:31 spironolactone Allergy Cannot Verified 11/21/19 14:31 Remember Sulfa (Sulfonamide Allergy unknown Verified 11/21/19 14:31 Antibiotics) celecoxib [From Celebrex] AdvReac weight gain Verified 11/21/19 14:31 rofecoxib AdvReac weight gain Verified 11/21/19 14:31 Home Meds: Home Meds Vitamin B Complex Vit C No.4 [Super B Complex] 1 tab PO DAILY 02/09/14 [History] atorvaSTATin [Lipitor] 10 mg PO DAILY 02/09/14 [History] Denosumab [Prolia] 1 injection SQ ASDIRECTED 04/22/18 [History] Fluticasone Propionate [24 Hour Allergy Relief] 2 spray NS BID PRN 04/22/18 [ History] Pantoprazole Sodium [Protonix] 40 mg PO DAILY 04/22/18 [History] Thiamine HCl [Vitamin B-1] 125 mg PO DAILY 04/19/19 [History] metFORMIN [Glucophage] 1,000 mg PO WITHDINNER 04/19/19 [History] Calcium Carb/Vitamin D3/Vit K1 [Calcium + Vit D & K Chew] 1 tab PO BID 11/21/19 [History] Cetirizine HCl [All Day Allergy] 10 mg PO DAILY PRN 11/21/19 [History] DULoxetine [Cymbalta] 120 mg PO DAILY 11/21/19 [History] Doxycycline [Vibramycin] 100 mg PO BID #14 tab 11/21/19 [Rx] Magnesium Oxide [Magnesium] 500 mg PO BID 11/21/19 [History] Omeprazole 20 mg PO DAILY 11/21/19 [History] hydrOXYzine HCL [hydrOXYzine] 25 mg PO TID PRN 11/21/19 [History] oxyCODONE HCl/Acetaminophen [Oxycodone-Acetaminophen 5-325] 1 tab PO Q4HR [History] traZODone HCl [Trazodone HCl] 200 mg PO BEDTIME 11/21/19 [History] Past Medical History HEENT History: Reports: Impaired Vision Cardiovascular History: Reports: Afib, Cardiomyopathy, Heart Failure, High Cholesterol, Hypertension Other Cardiovascular History: grade 3 heart failure Respiratory History: Reports: Bronchitis, Recurrent, Pneumonia, Recurrent, SOB Gastrointestinal History: Reports: Diverticulosis, GERD Other Gastrointestinal History: hx diverticulitis in past and esphageal spasms Genitourinary History: Reports: Renal Calculus [employer]IC[employer]ED [employer]ATOR History: Reports: Musculoskeletal History: Reports: Arthritis Neurological History: Reports: Migraines Other Neuro History: Spinal and Lumbar Stenosis. Psychiatric History: Reports: Anxiety, Depression, Other (See Below) Other Psychiatric History: difficulty sleeping Endocrine/Metabolic History: Reports: Diabetes, Type II, Osteoporosis Hematologic History: Reports: Anemia Oncologic (Cancer) History: Reports: None Dermatologic History: Reports: None - Infectious Disease History Infectious Disease History: Reports: None, Chicken Pox, Measles, Mumps - Past Surgical History HEENT Surgical History: Reports: Cataract Surgery, Oral Surgery Cardiovascular Surgical History: Reports: AICD, Other (See Below) Other Cardiovascular Surgeries/Procedures: defibrillator GI Surgical History: Reports: Appendectomy, Bariatric Procedure, Cholecystectomy , EGD, Hernia, Abdominal Female Surgical History: Reports: Section, Hysterectomy, Salpingo- Oophorectomy Neurological Surgical History: Reports: Laminectomy Musculoskeletal Surgical History: Reports: Ganglion Cyst, Other (See Below) Social & Family History - Family History Family Medical History: Noncontributory - Tobacco Use Smoking Status *Q: Former Smoker Used Tobacco, but Quit: Yes Month/Year Tobacco Last Used: 2012 - Caffeine Use Caffeine Use: Reports: Coffee, Soda - Recreational Drug Use Recreational Drug Use: No - Living Situation & Occupation Living situation: Reports: , Alone Occupation: Retired ED ROS GENERAL - Review of Systems Review Of Systems: See Below Constitutional: Reports: Fever, Chills HEENT: Reports: Rhinitis, Throat Pain Respiratory: Reports: Shortness of Breath, Cough, Sputum. Denies: Wheezing ( Mild) Cardiovascular: Reports: Chest Pain (With coughing and mild anterior tightness with the palpitations), Dyspnea on Exertion GI/Abdominal: Denies: Abdominal Pain, Nausea, Vomiting Musculoskeletal: Denies: Leg Pain Skin: Reports: No Symptoms Neurological: Reports: Dizziness. Denies: Numbness, Tingling, Trouble Speaking , Difficulty Walking, Weakness ED EXAM, GENERAL - Physical Exam Exam: See Below General Appearance: Alert, No Apparent Distress Eye Exam: Bilateral Eye: PERRL Throat/Mouth: Normal Inspection, Normal Oropharynx Head: Atraumatic. No: Facial Swelling Neck: Supple Respiratory/Chest: No Respiratory Distress, Lungs Clear, Normal Breath Sounds Cardiovascular: Irregularly Irregular GI/Abdominal: Soft, Non-Tender. No: Guarding Back Exam: Normal Inspection. No: CVA Tenderness (L), CVA Tenderness (R) Extremities: Normal Inspection. No: Pedal Edema, Leg Pain, Increased Warmth, Redness Neurological: Alert, Oriented, No Motor/Sensory Deficits Skin Exam: Warm, Dry, Normal Color EKG INTERPRETATION EKG Date: 11/21/19 Rhythm: NSR (with runs of bigeniny) P-Wave: Present QRS: Normal ST-T: Normal Course - Vital Signs Last Recorded V/S: Last Vital Signs Temp 97.7 F 11/21/19 14:27 Pulse 86 11/21/19 15:27 Resp 19 11/21/19 14:27 BP 106/53 L 11/21/19 15:27 Pulse Ox 98 11/21/19 14:27 - Orders/Labs/Meds Orders: Active Orders 24 hr Category Date Time Status Peripheral IV Care [RC] . DIRECTED Care 11/21/19 14:45 Active Peripheral IV Insertion Adult [OM.PC] Stat Oth 11/21/19 14:45 Ordered Labs: Laboratory Tests 11/21/19 11/21/19 11/21/19 Range/Units 14:35 14:38 14:38 WBC 6.72 (3.98-10.04) K/mm3 RBC 4.71 (3.98-5.22) M/mm3 Hgb 13.0 (11.2-15.7) gm/dl Hct 42.0 (34.1-44.9) % MCV 89.2 D (79.4-94.8) fl MCH 27.6 (25.6-32.2) pg MCHC 31.0 L (32.2-35.5) g/dl RDW Std Deviation 43.8 (36.4-46.3) fL Plt Count 298 (182-369) K/mm3 MPV 9.2 L (9.4-12.3) fl Neut % (Auto) 57.3 (34.0-71.1) % Lymph % (Auto) 30.8 (19.3-51.7) % Reeves % (Auto) 10.1 (4.7-12.5) % Eos % (Auto) 1.5 (0.7-5.8) Baso % (Auto) 0.3 (0.1-1.2) % Neut # (Auto) 3.85 (1.56-6.13) K/mm3 Lymph # (Auto) 2.07 (1.18-3.74) K/mm3 Reeves # (Auto) 0.68 H (0.24-0.36) K/mm3 Eos # (Auto) 0.10 (0.04-0.36) K/mm3 Baso # (Auto) 0.02 (0.01-0.08) K/mm3 Sodium 142 (136-145) mEq/L Potassium 4.1 (3.5-5.1) mEq/L Chloride 102 (98-107) mEq/L Carbon Dioxide 32 (21-32) mEq/L Anion Gap 12.1 (5-15) BUN 15 (7-18) mg/dL Creatinine 0.8 (0.55-1.02) mg/dL Est Cr Clr Drug Dosing 51.03 mL/min Estimated GFR (MDRD) > 60 (>60) mL/min BUN/Creatinine Ratio 18.8 H (14-18) Glucose 120 H (80-115) mg/dL Calcium 9.1 (8.5-10.1) mg/dL Total Bilirubin 0.2 (0.2-1.0) mg/dL AST 36 (15-37) U/L ALT 53 (14-59) U/L Alkaline Phosphatase 119 H (46-116) U/L Troponin I < 0.017 (0.00-0.056) ng/mL NT-Pro-B Natriuret Pep 173 H (0-125) pg/mL Total Protein 7.6 (6.4-8.2) g/dl Albumin 3.6 (3.4-5.0) g/dl Globulin 4.0 gm/dL Albumin/Globulin Ratio 0.9 L (1-2) 11/21/19 Range/Units 17:22 WBC (3.98-10.04) K/mm3 RBC (3.98-5.22) M/mm3 Hgb (11.2-15.7) gm/dl Hct (34.1-44.9) % MCV (79.4-94.8) fl MCH (25.6-32.2) pg MCHC (32.2-35.5) g/dl RDW Std Deviation (36.4-46.3) fL Plt Count (182-369) K/mm3 MPV (9.4-12.3) fl Neut % (Auto) (34.0-71.1) % Lymph % (Auto) (19.3-51.7) % Reeves % (Auto) (4.7-12.5) % Eos % (Auto) (0.7-5.8) Baso % (Auto) (0.1-1.2) % Neut # (Auto) (1.56-6.13) K/mm3 Lymph # (Auto) (1.18-3.74) K/mm3 Reeves # (Auto) (0.24-0.36) K/mm3 Eos # (Auto) (0.04-0.36) K/mm3 Baso # (Auto) (0.01-0.08) K/mm3 Sodium (136-145) mEq/L Potassium (3.5-5.1) mEq/L Chloride (98-107) mEq/L Carbon Dioxide (21-32) mEq/L Anion Gap (5-15) BUN (7-18) mg/dL Creatinine (0.55-1.02) mg/dL Est Cr Clr Drug Dosing mL/min Estimated GFR (MDRD) (>60) mL/min BUN/Creatinine Ratio (14-18) Glucose (80-115) mg/dL Calcium (8.5-10.1) mg/dL Total Bilirubin (0.2-1.0) mg/dL AST (15-37) U/L ALT (14-59) U/L Alkaline Phosphatase (46-116) U/L Troponin I < 0.017 (0.00-0.056) ng/mL NT-Pro-B Natriuret Pep (0-125) pg/mL Total Protein (6.4-8.2) g/dl Albumin (3.4-5.0) g/dl Globulin gm/dL Albumin/Globulin Ratio (1-2) Meds: Medications Discontinued Medications Generic Name Dose Route Start Last Admin Trade Name Freq PRN Reason Stop Dose Admin Doxycycline Hyclate 100 mg 11/21/19 18:17 11/21/19 18:25 Vibramycin PO 11/21/19 18:18 100 mg ONETIME ONE Administration Sodium Chloride 1,000 mls @ 999 mls/hr 11/21/19 15:20 11/21/19 15:24 Normal Saline IV 11/21/19 16:20 999 mls/hr ONETIME ONE Administration Metoprolol Tartrate 5 mg 11/21/19 14:46 11/21/19 15:27 Lopressor IVPUSH 11/21/19 14:47 2.5 mg ONETIME ONE Administration Sodium Chloride 10 ml 11/21/19 14:44 11/21/19 14:56 Saline Flush FLUSH 10 ml ASDIRECTED PRN Administration Keep Vein Open - Re-Assessments/Exams Free Text/Narrative Re-Assessment/Exam: 11/22/19 08:00 We did give lopressor 5 mg IV divided dosage, 250 ml IV fluid while checking labs. That did help her, still having PVC's at time of discharge but not near as frequent. Initial trop was neg and repeat 3 hr trop also neg. CXR looked fine. It is her severe coughing that sent her to the clinic. Will start her on Doxycycline 100 mg bid. Departure - Departure Time of Disposition: 18:17 Disposition: Home, Self-Care 01 Condition: Fair Clinical Impression: Bronchitis, Ventricular bigeminy seen on front desk monitor Upper respiratory infection Qualifiers: URI type: unspecified viral URI Qualified Code(s): J06.9 - Acute upper respiratory infection, unspecified Prescriptions: Doxycycline [Vibramycin] 100 mg PO BID #14 tab Instructions: Acute Bronchitis, Adult, [id number] Referrals: Kia Joseph, VETERINARY LABORATORY DIAGNOSTICIAN [Primary Care Provider] - Forms: ED Department Discharge Additional Instructions: Continue current medications, vaporizer or steam as needed, doxycycline 100 mg twice daily, you've been given our first dose here in the ED, prescription has been sent electronically to [facility] pharmacy. Follow-up clinic Tuesday or early next week for recheck, return to ED as needed if symptoms worsening in any way Sepsis Event Note - Evaluation Sepsis Screening Result: No Definite Risk - Focused Exam Date Exam was Performed: 11/22/19 Time Exam was Performed: 08:00 - My Orders Last 24 Hours: My Active Orders 11/21/19 14:45 Peripheral IV Care [RC] . DIRECTED Peripheral IV Insertion Adult [OM.PC] Stat - Assessment/Plan Last 24 Hours: My Active Orders 11/21/19 14:45 Peripheral IV Care [RC] . DIRECTED Peripheral IV Insertion Adult [OM.PC] Stat
[2019-11-21] MEDS ORDERED: Doxycycline 100 MG Cap PO ONE (18:17)
== END 2019-11-21 18:40 | disposition home or self-care (01) ==
LOC: JD.ED 14:17
DX: R00.8 Other abnormalities of heart beat (principal); J40 Bronchitis, not specified as acute or chronic; J06.9 Acute upper respiratory infection, unspecified; I11.0 Hypertensive heart disease with heart failure; I48.91 Unspecified atrial fibrillation; E78.00 Pure hypercholesterolemia, unspecified; K21.9 Gastro-esophageal reflux disease without esophagitis; M19.90 Unspecified osteoarthritis, unspecified site; F41.9 Anxiety disorder, unspecified; F32.9 Major depressive disorder, single episode, unspecified; E11.9 Type 2 diabetes mellitus without complications; Z87.891 Personal history of nicotine dependence; Z88.8 Allergy status to other drugs, medicaments and biological substances; Z88.2 Allergy status to sulfonamides; Z79.899 Other long term (current) drug therapy; Z79.84 Long term (current) use of oral hypoglycemic drugs
CPT/HCPCS: 36415; 71045; 80053; 83880; 84484; 85025; 87804; 96361; 96374; 99285; A9270; J3490; J7030

== ENCOUNTER 2020-11-17 14:14 | Emergency (ER) | payer MEDICARE, MEDICAID ==
[2020-11-17 14:30] VITALS: BP 147/93; PULSE 94
--- NOTE | 2020-11-17 14:38 | EDM.PDOC ---
ED HPI GENERAL MEDICAL PROBLEM - General Chief Complaint: Chest Pain Stated Complaint: CHEST PAIN Time Seen by Provider: 11/17/20 14:31 Source of Information: Reports: Patient History Limitations: Reports: No Limitations - History of Present Illness INITIAL COMMENTS - FREE TEXT/NARRATIVE: 64-year-old female presents to the ED reporting acute onset of central chest pressure sharp stabbing pain above 1330 hrs. today. She was sitting at the couch at the time that it occurred. Initially pain was sharp and stabbing and limited her ability to take in a full deep breath for about 5 to 8 minutes. She states pain was 10 out of 10 and is currently rated as a 3 out of 10. She denies doing any exercises that would have injured the chest wall muscles today. Of note the patient has a history of cardiomyopathy and reports that she has cut down on her Lasix use recently. She was recently seen by clinical rehabilitation specialist Dr. Ogden with no changes made to medications. She is due for an echocardiogram in February of this year. Last echocardiogram suggested an ejection fraction of 40 to 45%. She has a minimal cough nonproductive. She has not had COVID-19 illness. She is wearing compression stockings and has no swelling of her lower extremities. Appetite has been good. She denies orthopnea but she tends to sleep partially sitting up due to pain in her left hip. She has a history of mild fibromyalgia syndrome. Onset: Today, Sudden Onset Date: 11/17/20 Onset Time: 13:30 Duration: Hour(s):, Improving Location: Reports: Chest (Chest pain initially is quite sharp and stabbing for the first 5-day minutes and now more of a dull aching discomfort. No radiation to the back neck or arms.) Quality: Reports: Ache (Central chest ache), Pressure ( pain pressure discomfort), Other (Pain initially was sharp and stabbing for about 5 to 8 minutes) Severity: Moderate (Nikolay relates the pain to be 3 out of 10.) Improves with: Reports: None Worsens with: Reports: None (Exertion.) Context: Denies: Activity, Exercise, Lifting, Sick Contact, Trauma, Other Associated Symptoms: Reports: Chest Pain (Productive cough), Cough, Shortness of Breath. 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.) Chest Pain Score (Numeric/FACES): 10 - Related Data Allergies Allergy/AdvReac Type Severity Reaction Status Date / Time Pyrazolones [Pyrazoles] Allergy unknown Verified 11/21/19 14:31 regadenoson [From Lexiscan] Allergy Rash Verified 11/21/19 14:31 spironolactone Allergy Cannot Verified 11/21/19 14:31 Remember Sulfa (Sulfonamide Allergy unknown Verified 11/21/19 14:31 Antibiotics) celecoxib [From Celebrex] AdvReac weight gain Verified 11/21/19 14:31 rofecoxib AdvReac weight gain Verified 11/21/19 14:31 Home Meds: Home Meds Vitamin B Complex Vit C No.4 [Super B Complex] 1 tab PO DAILY 02/09/14 [History] atorvaSTATin [Lipitor] 10 mg PO DAILY 02/09/14 [History] Denosumab [Prolia] 1 injection SQ ASDIRECTED 04/22/18 [History] Fluticasone Propionate [24 Hour Allergy Relief] 2 spray NS BID PRN 04/22/18 [History] Pantoprazole Sodium [Protonix] 40 mg PO DAILY 04/22/18 [History] Thiamine HCl [Vitamin B-1] 125 mg PO DAILY 04/19/19 [History] metFORMIN [Glucophage] 1,000 mg PO WITHDINNER 04/19/19 [History] Calcium Carb/Vitamin D3/Vit K1 [Calcium + Vit D & K Chew] 1 tab PO BID 11/21/19 [History] Cetirizine HCl [All Day Allergy] 10 mg PO DAILY PRN 11/21/19 [History] DULoxetine [Cymbalta] 120 mg PO DAILY 11/21/19 [History] Doxycycline [Vibramycin] 100 mg PO BID #14 tab 11/21/19 [Rx] Magnesium Oxide [Magnesium] 500 mg PO BID 11/21/19 [History] Omeprazole 20 mg PO DAILY 11/21/19 [History] hydrOXYzine HCL [hydrOXYzine] 25 mg PO TID PRN 11/21/19 [History] oxyCODONE HCl/Acetaminophen [Oxycodone-Acetaminophen 5-325] 1 tab PO Q4HR 11/21/19 [History] traZODone HCl [Trazodone HCl] 200 mg PO BEDTIME 11/21/19 [History] Past Medical History HEENT History: Reports: Impaired Vision Cardiovascular History: Reports: Afib, Cardiomyopathy, Heart Failure, High Cholesterol, Hypertension Other Cardiovascular History: grade 3 heart failure Respiratory History: Reports: Bronchitis, Recurrent, Pneumonia, Recurrent, SOB Gastrointestinal History: Reports: Diverticulosis, GERD Other Gastrointestinal History: hx diverticulitis in past and esphageal spasms Genitourinary History: Reports: Renal Calculus [place] [employer]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 Psychiatric History: Reports: Anxiety, Depression, Other (See Below) Other Psychiatric History: difficulty sleeping --chronic insomnia Endocrine/Metabolic History: Reports: Diabetes, Type II, Osteoporosis Hematologic History: Reports: Anemia Oncologic (Cancer) History: Reports: None Dermatologic History: Reports: None - Infectious Disease History Infectious Disease History: Reports: None, Chicken Pox, Measles, Mumps - Past Surgical History HEENT Surgical History: Reports: Cataract Surgery, Oral Surgery Cardiovascular Surgical History: Reports: AICD, Other (See Below) Other Cardiovascular Surgeries/Procedures: defibrillator GI Surgical History: Reports: Appendectomy, Bariatric Procedure, Cholecystectomy, EGD, Hernia, Abdominal Female Surgical History: Reports: Section, Hysterectomy, Salpingo- Oophorectomy Neurological Surgical History: Reports: Laminectomy Musculoskeletal Surgical History: Reports: Ganglion Cyst, Other (See Below) Social & Family History - Family History Family Medical History: No Pertinent Family History - Caffeine Use Caffeine Use: Reports: Coffee, Soda - Living Situation & Occupation Living situation: Reports: , Alone Occupation: Retired ED ROS GENERAL - Review of Systems Review Of Systems: See Below Constitutional: Reports: Malaise, Fatigue. Denies: Fever, Chills, Weakness, Night Sweats, Diaphoresis, Decreased Appetite, Weight Loss, Weight Gain HEENT: Reports: Glasses Respiratory: Reports: Shortness of Breath, Cough. Denies: Wheezing, Pleuritic Chest Pain, Sputum, Hemoptysis Cardiovascular: Reports: Chest Pain (Nonproductive see history of present illness), Blood Pressure Problem, Lightheadedness. Denies: Claudication, Dyspnea on Exertion, Edema, Orthopnea, Palpitations Endocrine: Reports: Fatigue GI/Abdominal: Reports: No Symptoms : Reports: Frequency, Incontinence (Both urge and stress components) Musculoskeletal: Reports: Neck Pain, Back Pain, Other (Generalized musculoskeletal pain secondary to fibromyalgia syndrome) Skin: Reports: No Symptoms Neurological: Reports: Dizziness, Headache (States having headache for the last 2 and half weeks. No sinus congestion.) Psychiatric: Reports: Anxiety, Depression, Other (Myalgia syndrome) Hematologic/Lymphatic: Reports: No Symptoms ( chronic insomnia) Immunologic: Reports: No Symptoms ED EXAM, GENERAL - Physical Exam Exam: See Below Exam Limited By: No Limitations General Appearance: Alert, WD/WN, Anxious, Mild Distress, Other (Temperature is 36.5 with a heart rate of 94 and sinus respiratory 16 with O2 sat 100% room air BP 1 4793) Eye Exam: Bilateral Eye: Normal Inspection, PERRL (Mild blepharal pallor. No scleral icterus.) Nose: Normal Inspection, Normal Mucosa, No Blood. No: Nasal Tenderness Throat/Mouth: Normal Inspection, Normal Lips, Normal Oropharynx. No: Normal Teeth Head: Atraumatic, Normocephalic Neck: Limited Range of Motion, Tender Lateral (Both sides. No worse than normal). No: Full Range of Motion, Lymphadenopathy (L), Lymphadenopathy (R) Respiratory/Chest: No Respiratory Distress, Rales (Fine rales both lower lung kendall.), Other (There is a pacemaker defibrillator left upper anterior chest.) Cardiovascular: Regular Rate, Rhythm, No Edema (Wearing compression stockings up to the knees.), No Murmur. No: Normal Peripheral Pulses Peripheral Pulses: 2+: Carotid (L), Carotid (R), Dorsalis Pedis (L), Dorsalis Pedis (R) GI/Abdominal: Normal Bowel Sounds, Soft, Non-Tender, No Organomegaly, No Abnormal Bruit, No Mass, Pelvis Stable Back Exam: Normal Inspection, Full Range of Motion, Other (Healed midline scar scar over her lumbar spine. She does have increased lordotic curvature). No: CVA Tenderness (L), CVA Tenderness (R) Extremities: Normal Inspection, No Pedal Edema Neurological: Alert, Oriented, CN II-XII Intact, Normal Cognition, No Motor/Sensory Deficits Psychiatric: Anxious Skin Exam: Warm, Dry, Intact, Normal Color, No Rash #1 Interpretation EKG Date: 11/17/20 Time: 14:42 Rhythm: NSR Rate (Beats/Min): 85 [place]: Normal P-Wave: Present (First-degree AV block left atrial hypertrophy pattern) QRS: Other (Early R wave transition V2 consider right ventricular hypertrophy pattern. Tall R wave in lead I suggestive the left ventricular perjury.) ST-T: Other (Nonspecific T wave flattening V3 to V6.) QT: Normal EKG Interpretation Comments: Abnormal ECG Course - Vital Signs Last Recorded V/S: Last Vital Signs Temp 36.5 C 11/17/20 14:25 Pulse 94 11/17/20 14:25 Resp 16 11/17/20 14:25 BP 147/93 H 11/17/20 14:25 Pulse Ox 100 11/17/20 14:25 - Orders/Labs/Meds Orders: Active Orders 24 hr Category Date Time Status EKG Documentation Completion [RC] STAT Care 11/17/20 14:39 Active Peripheral IV Care [RC] . DIRECTED Care 11/17/20 14:40 Active Sodium Chloride 0.9% [Saline Flush] Med 11/17/20 14:40 Active 10 ml FLUSH ASDIRECTED PRN Peripheral IV Insertion Adult [OM.PC] Stat Oth 11/17/20 14:40 Ordered Medication Orders Sodium Chloride (Saline Flush) 10 ml FLUSH ASDIRECTED PRN PRN Reason: Keep Vein Open Last Admin: 11/17/20 15:04 Dose: 10 ml Documented by: SULMA Labs: Laboratory Tests 11/17/20 11/17/20 11/17/20 Range/Units 14:54 14:54 14:54 WBC 9.07 (3.98-10.04) K/mm3 RBC 4.47 (3.98-5.22) M/mm3 Hgb 11.7 D (11.2-15.7) gm/dl Hct 37.9 (34.1-44.9) % MCV 84.8 D (79.4-94.8) fl MCH 26.2 (25.6-32.2) pg MCHC 30.9 L (32.2-35.5) g/dl RDW Std Deviation 45.1 (36.4-46.3) fL Plt Count 308 (182-369) K/mm3 MPV 9.4 (9.4-12.3) fl Neut % (Auto) 80.1 H (34.0-71.1) % Lymph % (Auto) 11.5 L (19.3-51.7) % [place] % (Auto) 7.7 (4.7-12.5) % Eos % (Auto) 0.6 L (0.7-5.8) Baso % (Auto) 0.1 (0.1-1.2) % Neut # (Auto) 7.27 H (1.56-6.13) K/mm3 Lymph # (Auto) 1.04 L (1.18-3.74) K/mm3 [place] # (Auto) 0.70 H (0.24-0.36) K/mm3 Eos # (Auto) 0.05 (0.04-0.36) K/mm3 Baso # (Auto) 0.01 (0.01-0.08) K/mm3 PT 10.0 (9.7-12.0) SECONDS INR 0.93 APTT 26.7 (21.7-31.4) SECONDS D-Dimer, Quantitative 0.51 H (0.19-0.50) mg/L Sodium 138 (136-145) mEq/L Potassium 3.9 (3.5-5.1) mEq/L Chloride 100 (98-107) mEq/L Carbon Dioxide 29 (21-32) mEq/L Anion Gap 12.9 (5-15) BUN 14 (7-18) mg/dL Creatinine 0.9 (0.55-1.02) mg/dL Est Cr Clr Drug Dosing 49.29 mL/min Estimated GFR (MDRD) > 60 (>60) mL/min BUN/Creatinine Ratio 15.6 (14-18) Glucose 216 H (80-115) mg/dL Calcium 9.3 (8.5-10.1) mg/dL Magnesium 1.9 (1.8-2.4) mg/dl Total Bilirubin 0.2 (0.2-1.0) mg/dL AST 109 H (15-37) U/L ALT 58 (14-59) U/L Alkaline Phosphatase 123 H (46-116) U/L CK-MB (CK-2) 0.9 (0-3.6) ng/ml Troponin I < 0.017 (0.00-0.056) ng/mL C-Reactive Protein 1.6 H* (<1.0) mg/dL NT-Pro-B Natriuret Pep (0-125) pg/mL Total Protein 7.1 (6.4-8.2) g/dl Albumin 3.4 (3.4-5.0) g/dl Globulin 3.7 gm/dL Albumin/Globulin Ratio 0.9 L (1-2) 11/17/20 Range/Units 14:54 WBC (3.98-10.04) K/mm3 RBC (3.98-5.22) M/mm3 Hgb (11.2-15.7) gm/dl Hct (34.1-44.9) % MCV (79.4-94.8) fl MCH (25.6-32.2) pg MCHC (32.2-35.5) g/dl RDW Std Deviation (36.4-46.3) fL Plt Count (182-369) K/mm3 MPV (9.4-12.3) fl Neut % (Auto) (34.0-71.1) % Lymph % (Auto) (19.3-51.7) % [place] % (Auto) (4.7-12.5) % Eos % (Auto) (0.7-5.8) Baso % (Auto) (0.1-1.2) % Neut # (Auto) (1.56-6.13) K/mm3 Lymph # (Auto) (1.18-3.74) K/mm3 [place] # (Auto) (0.24-0.36) K/mm3 Eos # (Auto) (0.04-0.36) K/mm3 Baso # (Auto) (0.01-0.08) K/mm3 PT (9.7-12.0) SECONDS INR APTT (21.7-31.4) SECONDS D-Dimer, Quantitative (0.19-0.50) mg/L Sodium (136-145) mEq/L Potassium (3.5-5.1) mEq/L Chloride (98-107) mEq/L Carbon Dioxide (21-32) mEq/L Anion Gap (5-15) BUN (7-18) mg/dL Creatinine (0.55-1.02) mg/dL Est Cr Clr Drug Dosing mL/min Estimated GFR (MDRD) (>60) mL/min BUN/Creatinine Ratio (14-18) Glucose (80-115) mg/dL Calcium (8.5-10.1) mg/dL Magnesium (1.8-2.4) mg/dl Total Bilirubin (0.2-1.0) mg/dL AST (15-37) U/L ALT (14-59) U/L Alkaline Phosphatase (46-116) U/L CK-MB (CK-2) (0-3.6) ng/ml Troponin I (0.00-0.056) ng/mL C-Reactive Protein (<1.0) mg/dL NT-Pro-B Natriuret Pep 209 H (0-125) pg/mL Total Protein (6.4-8.2) g/dl Albumin (3.4-5.0) g/dl Globulin gm/dL Albumin/Globulin Ratio (1-2) Meds: Medications Generic Name Dose Route Start Last Admin Trade Name Freq PRN Reason Stop Dose Admin Sodium Chloride 10 ml 11/17/20 14:40 11/17/20 15:04 Saline Flush FLUSH 10 ml ASDIRECTED PRN Administration Keep Vein Open Discontinued Medications Generic Name Dose Route Start Last Admin Trade Name Freq PRN Reason Stop Dose Admin Hydromorphone HCl 0.5 mg 11/17/20 14:40 11/17/20 15:03 Dilaudid IVPUSH 11/17/20 14:41 0.5 mg ONETIME ONE Administration Ondansetron HCl 4 mg 11/17/20 14:41 11/17/20 15:02 Zofran IVPUSH 11/17/20 14:42 4 mg ONETIME ONE Administration - Radiology Interpretation Free Text/Narrative:: 64-year-old female presents to the ED with a bout of severe central chest pain at about 1330 hrs. today while seated on the couch. Initially was very sharp and stabbing and difficult to take in a deep breath. This lasted about 8 minutes and then started to ease up. Currently is more of a dull ache pressure discomfort and she rates it as a 3-4 out of 10. She has an associated bifrontal headache for the last 2 weeks. No nausea or vomiting. No recent changes to medications although she plays with her Lasix dose depending on how much fluid she retains for on a day-to-day basis. Patient has a underlying cardiomyopathy for the last 20 years. Does have mild orthopnea. Plan she will have an ECG, portable chest x-ray and routine labs performed. Saline lock will be placed. Given her Dilaudid 0.5 mg with Zofran 4 mg IV for pain relief both in the chest and headache. And is quite anxious. - Re-Assessments/Exams Free Text/Narrative Re-Assessment/Exam: 11/17/20 15:22 portable chest x-ray reveals heart size to be within normal limits. There is some blunting of the left costophrenic angle compatible with a mild pleural effusion. There is no diffuse vascular congestion. No pneumothorax and visualized portion of the lungs are completely clear. Pulmonary artery on the right side also is within normal limits. There is a cardiac pacemaker defibrillator left upper anterior chest Free Text/Narrative Re-Assessment/Exam: 11/17/20 15:53 White count is normal at 9.07. Differential shows 80.1% neutrophils a mild left shift. Hemoglobin slightly low at 11.7 with hematocrit of 37.9. Platelet count normal at 308,000. PT is 10.0 with an INR of 0.93 PTT is 26.7 and a D-dimer is 0.51 BNP is 209 slightly elevated 11/17/20 16:14 Serum 138 with a potassium of 3.9 chloride 100 with a bicarb of 29. Anion gap is 12.9 with a BUN of 14 creatinine is 0.9 GFR greater than 60. Glucose is 216 with a calcium of 9.3 magnesium 1.9 bilirubin is 0.2. AST mildly elevated 109 ALT normal at 58. Alk phos today is minimally elevated 123. CK- MB fraction is 0.9 with a troponin I of less than 0.017. C-reactive protein is 1.6 BNP minimally elevated at 209. Total protein is 7.1 with an albumin fraction of 3.4 Departure - Departure Time of Disposition: 16:23 Disposition: Home, Self-Care 01 Condition: Good Clinical Impression: Non-cardiac chest pain, Muscle spasm, Acute chest wall pain Referrals: [facility] [Primary Care Provider] - Forms: ED Department Discharge Additional Instructions: Evaluation in the emergency room today in regards to sudden onset of sharp stabbing anterior chest pain over the sternum this afternoon about 1330 hrs. This occurred while he was seated at rest. It lasted for good 5 to 8 minutes and made it difficult to take a deep breath for period of time. By this history this suggest that it was likely a muscle spasm that caused this pain in between the ribs making it difficult to breathe. No true pleurisy pain. Chest x-ray was within normal limits including a normal sized heart and a very minimal amount of fluid in the left costophrenic angle. There is some scar tissue on the right side. Lab test revealed 1 of extra fluid on board with a BNP of 209 and normal is 150. This is excellent considering you have an underlying ca rdiomyopathy. No other major electrolyte abnormalities were identified. Kidney function is good sodium and potassium are normal magnesium is normal as well. Therefore I could not find any reason for development of muscle spasm pain. It can sometimes occur in patients who are long-term Lasix or diuretic medications due to potassium shifts between cells in the bloodstream. Be aware that it coul d come back off and on for the next week to 10 days. However there is no evidence that it is heart related and no signs of blood clots were identified in your lungs today. At this time suggest no changes to medications. Follow-up with personal care physician if any further problems occur Sepsis Event Note (ED) - Evaluation Sepsis Screening Result: No Definite Risk - Focused Exam Vital Signs: Vital Signs Temp Pulse Resp BP Pulse Ox 11/17/20 14:25 36.5 C 94 16 147/93 H 100 - My Orders Last 24 Hours: My Active Orders 11/17/20 14:39 EKG Documentation Completion [RC] STAT 11/17/20 14:40 Peripheral IV Care [RC] . DIRECTED Sodium Chloride 0.9% [Saline Flush] 10 ml FLUSH ASDIRECTED PRN Peripheral IV Insertion Adult [OM.PC] Stat - Assessment/Plan Last 24 Hours: My Active Orders 11/17/20 14:39 EKG Documentation Completion [RC] STAT 11/17/20 14:40 Peripheral IV Care [RC] . DIRECTED Sodium Chloride 0.9% [Saline Flush] 10 ml FLUSH ASDIRECTED PRN Peripheral IV Insertion Adult [OM.PC] Stat
[2020-11-17] MEDS ORDERED: Sodium Chloride 0.9% 10 ML Syringe FLUSH PRN (14:40)
[2020-11-17] MEDS ORDERED: HYDROmorphone 0.5 MG/0.5 ML Syringe IVPUSH ONE (14:40)
[2020-11-17] MEDS ORDERED: Ondansetron 4 MG/2 ML SDV IVPUSH ONE (14:41)
--- NOTE | 2020-11-17 15:47 | CR ---
Chest: Portable upright view of the chest was obtained. Comparison: Prior chest x-ray of 07/11/20. Heart size and mediastinum are normal. AICD is in place. Slight blunting of the lateral left costophrenic angle is seen which is stable. Lungs show no acute parenchymal change. Scoliosis is noted within the spine. Impression: 1. Nothing acute is seen on portable chest x-ray. 2. Stable findings as noted above. Diagnostic code #2
== END 2020-11-17 16:35 | disposition home or self-care (01) ==
LOC: JD.ED 14:14
DX: M62.838 Other muscle spasm (principal); I48.91 Unspecified atrial fibrillation; E78.00 Pure hypercholesterolemia, unspecified; I11.0 Hypertensive heart disease with heart failure; I50.9 Heart failure, unspecified; K21.9 Gastro-esophageal reflux disease without esophagitis; E11.9 Type 2 diabetes mellitus without complications; Z88.8 Allergy status to other drugs, medicaments and biological substances; Z88.2 Allergy status to sulfonamides; Z79.84 Long term (current) use of oral hypoglycemic drugs; Z79.899 Other long term (current) drug therapy
CPT/HCPCS: 36415; 71045; 80053; 82553; 83735; 83880; 84484; 85025; 85379; 85610; 85730; 86140; 93005; 96374; 96375; 99285; J1170; J2405; 93010; 99284

== ENCOUNTER 2022-02-06 10:47 | Emergency (ER) | payer MEDICARE, MEDICAID ==
[2022-02-06 11:07] VITALS: BP 135/87; PULSE 99
[2022-02-06] MEDS ORDERED: HYDROmorphone 1 MG/ML Syringe IM ONE (11:35)
== END 2022-02-06 14:53 | disposition home or self-care (01) ==
LOC: JD.ED 10:47
DX: S70.12XA Contusion of left thigh, initial encounter (principal); S70.11XA Contusion of right thigh, initial encounter; M54.2 Cervicalgia; I48.91 Unspecified atrial fibrillation; I11.0 Hypertensive heart disease with heart failure; I50.9 Heart failure, unspecified; E78.00 Pure hypercholesterolemia, unspecified; K21.9 Gastro-esophageal reflux disease without esophagitis; E11.9 Type 2 diabetes mellitus without complications; Z88.2 Allergy status to sulfonamides; Z88.8 Allergy status to other drugs, medicaments and biological substances; Z79.899 Other long term (current) drug therapy; Z79.84 Long term (current) use of oral hypoglycemic drugs; W18.39XA Other fall on same level, initial encounter
CPT/HCPCS: 72040; 73552; 73700; 96372; 99284; J1170

== ENCOUNTER 2022-07-25 15:14 | Emergency (ER) | payer MEDICARE, MEDICAID ==
[2022-07-25 16:03] VITALS: BP 125/88; PULSE 96
[2022-07-25] MEDS ORDERED: Sodium Chloride 0.9% 10 ML Syringe FLUSH PRN (16:32)
[2022-07-25 17:19] LABS: CORONAVIRUS COVID-19 NAA NEGATIVE (NEGATIVE)
[2022-07-25 17:52] LABS: ESTIMATED GFR 55 mL/min (>60)
== END 2022-07-25 18:45 | disposition home or self-care (01) ==
LOC: JD.ED 15:14
DX: I95.89 Other hypotension (principal); R53.1 Weakness; I11.0 Hypertensive heart disease with heart failure; I50.9 Heart failure, unspecified; K21.9 Gastro-esophageal reflux disease without esophagitis; E11.9 Type 2 diabetes mellitus without complications; Z88.8 Allergy status to other drugs, medicaments and biological substances; Z88.2 Allergy status to sulfonamides; Z88.1 Allergy status to other antibiotic agents; Z79.899 Other long term (current) drug therapy; Z79.84 Long term (current) use of oral hypoglycemic drugs; Z90.49 Acquired absence of other specified parts of digestive tract; Z90.710 Acquired absence of both cervix and uterus; Z20.822 Contact with and (suspected) exposure to COVID-19
CPT/HCPCS: 0241U; 36415; 70450; 71045; 80053; 81001; 83605; 83735; 83880; 84443; 84484; 85025; 85610; 85730; 86140; 93005; 99285; J3490; 93010; 99284

== ENCOUNTER 2022-10-29 14:06 | Emergency (ER) | payer MEDICARE, MEDICAID ==
[2022-10-29] MEDS ORDERED: Sodium Chloride 0.9% 10 ML Syringe FLUSH PRN (16:31)
[2022-10-29 19:01] VITALS: BP 128/82; PULSE 78
== END 2022-10-29 19:01 | disposition home or self-care (01) ==
LOC: JD.ED 14:06
DX: I95.89 Other hypotension (principal); I11.0 Hypertensive heart disease with heart failure; I50.9 Heart failure, unspecified; E11.9 Type 2 diabetes mellitus without complications; E78.00 Pure hypercholesterolemia, unspecified; I48.91 Unspecified atrial fibrillation; Z88.2 Allergy status to sulfonamides; Z88.8 Allergy status to other drugs, medicaments and biological substances; Z79.899 Other long term (current) drug therapy; Z79.84 Long term (current) use of oral hypoglycemic drugs; Z87.891 Personal history of nicotine dependence
CPT/HCPCS: 36415; 71046; 71046-26; 80053; 83880; 84484; 85025; 93005; 99285

== ENCOUNTER 2023-01-22 07:12 | Emergency (ER) | payer MEDICARE, OTHER ==
[2023-01-22] MEDS ORDERED: Acetaminophen/HYDROcodone 325-5 MG Tab PO ONE (07:22)
[2023-01-22] MEDS ORDERED: HYDROmorphone 0.5 MG/0.5 ML Syringe IVPUSH ONE (09:05)
[2023-01-22] MEDS ORDERED: Pantoprazole 40 MG Vial IVPUSH ONE (09:49)
[2023-01-22] MEDS ORDERED: Ondansetron 4 MG/2 ML SDV IVPUSH ONE (09:49)
[2023-01-22 10:16] VITALS: BP 142/81; PULSE 74
== END 2023-01-22 10:25 | disposition home or self-care (01) ==
LOC: JD.ED 07:12
DX: S22.41XA Multiple fractures of ribs, right side, initial encounter for closed fracture (principal); S80.211A Abrasion, right knee, initial encounter; R91.1 Solitary pulmonary nodule; M17.11 Unilateral primary osteoarthritis, right knee; I48.91 Unspecified atrial fibrillation; I11.0 Hypertensive heart disease with heart failure; I50.9 Heart failure, unspecified; E78.00 Pure hypercholesterolemia, unspecified; K21.9 Gastro-esophageal reflux disease without esophagitis; E11.9 Type 2 diabetes mellitus without complications; Z88.8 Allergy status to other drugs, medicaments and biological substances; Z88.2 Allergy status to sulfonamides; Z88.1 Allergy status to other antibiotic agents; Z79.899 Other long term (current) drug therapy; Z79.84 Long term (current) use of oral hypoglycemic drugs; W01.0XXA Fall on same level from slipping, tripping and stumbling without subsequent striking against object, initial encounter
CPT/HCPCS: 71250; 73564; 96374; 96375; 99285; A9270; C9113; J1170; J2405; 99284

== ENCOUNTER 2023-02-11 22:16 | Emergency (ER) | payer MEDICARE, OTHER ==
[2023-02-11] MEDS ORDERED: Iopamidol 755 Mg/ML 100 ML Bottle IVPUSH ONE (22:41)
[2023-02-11] MEDS ORDERED: Sodium Chloride 0.9% 100 ML IV SCH (22:45)
[2023-02-11 22:58] LABS: ESTIMATED GFR 61 mL/min (>60)
[2023-02-11 23:29] VITALS: BP 123/71; PULSE 88
[2023-02-11] MEDS ORDERED: Sodium Chloride 0.9% 1,000 ML IV ONE (23:45)
== END 2023-02-12 00:10 | disposition home or self-care (01) ==
LOC: JD.ED 22:16
DX: F12.129 Cannabis abuse with intoxication, unspecified (principal); I11.0 Hypertensive heart disease with heart failure; I50.9 Heart failure, unspecified; E78.00 Pure hypercholesterolemia, unspecified; E11.9 Type 2 diabetes mellitus without complications; Z88.2 Allergy status to sulfonamides; Z88.1 Allergy status to other antibiotic agents; Z88.8 Allergy status to other drugs, medicaments and biological substances; Z79.899 Other long term (current) drug therapy; Z79.84 Long term (current) use of oral hypoglycemic drugs; Z90.49 Acquired absence of other specified parts of digestive tract; Z90.710 Acquired absence of both cervix and uterus
CPT/HCPCS: 36415; 70450; 70496; 70498; 80053; 80306; 80307; 81001; 82947; 85027; 93005; 96360; 99285; J3490; J7030; Q9967; 93010; 99284

== ENCOUNTER 2023-02-24 14:15 | Inpatient (IN) | payer MEDICARE, OTHER ==
[2023-02-24] MEDS ORDERED: HYDROmorphone 0.5 MG/0.5 ML Syringe IVPUSH ONE (14:37)
[2023-02-24] MEDS ORDERED: Ondansetron 4 MG/2 ML SDV IVPUSH ONE (14:37)
[2023-02-24] MEDS ORDERED: Orphenadrine 100 MG Tab.ER PO ONE (15:45)
[2023-02-24] MEDS ORDERED: Acetaminophen/oxyCODONE 325-5 MG Tab PO ONE (16:23)
[2023-02-24] MEDS ORDERED: Ondansetron 4 MG Tab.DIS PO PRN (18:55)
[2023-02-24] MEDS ORDERED: Cyclobenzaprine 10 MG Tab PO PRN (18:57)
[2023-02-24] MEDS: Acetaminophen 325 MG Tab PO SCH (20:01)
[2023-02-24] MEDS: oxyCODONE 5 MG Tab PO PRN (20:39)
[2023-02-24] MEDS ORDERED: TRAZODONE 100 MG PO SCH (21:00)
[2023-02-24] MEDS ORDERED: traZODone 50 MG Tab PO ONE (21:47)
[2023-02-24] MEDS: MEXILETINE 150 MG PO SCH (22:31)
[2023-02-25] MEDS: Acetaminophen 325 MG Tab PO SCH (00:39)
[2023-02-25] MEDS: oxyCODONE 5 MG Tab PO PRN ×6 (00:44→22:35)
[2023-02-25] MEDS: Polyethylene Glycol 3350 Powder 17 GM Packet PO SCH (08:34)
[2023-02-25] MEDS: MEXILETINE 150 MG PO SCH ×3 (08:34→20:42)
[2023-02-25] MEDS: Enoxaparin 40 MG/0.4 ML Syringe SUBCUT SCH (08:34)
[2023-02-25] MEDS ORDERED: EMPAGLIFLOZIN 25 MG PO SCH (10:30)
[2023-02-25] MEDS ORDERED: Furosemide 20 MG Tab ** PATIENT'S OWN MED PO SCH (10:30)
[2023-02-25] MEDS ORDERED: POTASSIUM CHLORIDE 10 MEQ PO SCH (10:30)
[2023-02-25] MEDS ORDERED: PANTOPRAZOLE 40 MG PO SCH (10:30)
[2023-02-25] MEDS ORDERED: DULOXETINE 60 MG PO SCH (10:30)
[2023-02-25] MEDS ORDERED: atorvaSTATin 20 MG Tab ** PATIENT'S OWN MED PO SCH (10:30)
[2023-02-25] MEDS ORDERED: CYCLOBENZAPRINE 10 MG PO PRN (10:45)
[2023-02-25] MEDS ORDERED: MIDODRINE 5 MG PO SCH (11:00)
[2023-02-25] MEDS ORDERED: BUSPIRONE 15 MG PO SCH (12:00)
[2023-02-25] MEDS ORDERED: Calcium Carbonate 500 MG Tab.Chew PO PRN (12:46)
[2023-02-25] MEDS: Furosemide 20 MG Tab PO SCH (12:55)
[2023-02-25] MEDS: Midodrine 5 MG Tab PO SCH (17:31)
[2023-02-25] MEDS: traZODone 50 MG Tab PO SCH (20:41)
[2023-02-25] MEDS: Gabapentin 100 MG Cap PO SCH (20:41)
[2023-02-25] MEDS: Doxepin 10 MG Cap PO SCH (20:41)
[2023-02-25] MEDS: Cyclobenzaprine 10 MG Tab PO PRN (20:50)
[2023-02-25] MEDS: busPIRone 15 MG Tab PO SCH (20:51)
[2023-02-26] MEDS: oxyCODONE 5 MG Tab PO PRN ×4 (03:13→19:00)
[2023-02-26] MEDS: Midodrine 5 MG Tab PO SCH ×3 (06:13→16:09)
[2023-02-26] MEDS: busPIRone 15 MG Tab PO SCH ×3 (06:13→20:36)
[2023-02-26] MEDS: atorvaSTATin 20 MG Tab PO SCH (09:05)
[2023-02-26] MEDS: Gabapentin 100 MG Cap PO SCH ×2 (09:05→20:36)
[2023-02-26] MEDS: Empagliflozin 25 MG Tab PO SCH (09:06)
[2023-02-26] MEDS: Furosemide 40 MG Tab PO SCH (09:06)
[2023-02-26] MEDS: Potassium Chloride 10 MEQ Tab.ER PO SCH (09:06)
[2023-02-26] MEDS: DULoxetine 30 MG Cap PO SCH (09:07)
[2023-02-26] MEDS: Enoxaparin 40 MG/0.4 ML Syringe SUBCUT SCH (09:07)
[2023-02-26] MEDS: Pantoprazole 40 MG Tab.CR PO SCH (09:07)
[2023-02-26] MEDS: Polyethylene Glycol 3350 Powder 17 GM Packet PO SCH (09:08)
[2023-02-26] MEDS: MEXILETINE 150 MG PO SCH ×3 (09:08→20:36)
[2023-02-26] MEDS ORDERED: Diclofenac Sodium 1% Gel 100 GM Tube TOP PRN (12:25)
[2023-02-26] MEDS: Cyclobenzaprine 10 MG Tab PO PRN (16:10)
[2023-02-26] MEDS: Doxepin 10 MG Cap PO SCH (20:36)
[2023-02-26] MEDS: traZODone 50 MG Tab PO SCH (20:36)
[2023-02-27] MEDS: oxyCODONE 5 MG Tab PO PRN ×4 (01:51→20:27)
[2023-02-27] MEDS: Cyclobenzaprine 10 MG Tab PO PRN (05:17)
[2023-02-27] MEDS: busPIRone 15 MG Tab PO SCH ×3 (06:01→20:33)
[2023-02-27] MEDS: Midodrine 5 MG Tab PO SCH ×3 (06:01→18:31)
[2023-02-27] MEDS: Acetaminophen 325 MG Tab PO SCH ×3 (08:24→18:31)
[2023-02-27] MEDS: Gabapentin 100 MG Cap PO SCH ×2 (08:25→20:25)
[2023-02-27] MEDS: Potassium Chloride 10 MEQ Tab.ER PO SCH (08:26)
[2023-02-27] MEDS: Pantoprazole 40 MG Tab.CR PO SCH (08:26)
[2023-02-27] MEDS: DULoxetine 30 MG Cap PO SCH (08:26)
[2023-02-27] MEDS: Empagliflozin 25 MG Tab PO SCH (08:27)
[2023-02-27] MEDS: MEXILETINE 150 MG PO SCH ×3 (08:27→20:25)
[2023-02-27] MEDS: Polyethylene Glycol 3350 Powder 17 GM Packet PO SCH (08:27)
[2023-02-27] MEDS: Enoxaparin 40 MG/0.4 ML Syringe SUBCUT SCH (08:27)
[2023-02-27] MEDS: atorvaSTATin 20 MG Tab PO SCH (08:27)
[2023-02-27] MEDS: Furosemide 20 MG Tab PO SCH (12:17)
[2023-02-27] MEDS: Doxepin 10 MG Cap PO SCH (20:25)
[2023-02-27] MEDS: traZODone 50 MG Tab PO SCH (20:26)
[2023-02-28] MEDS: Cyclobenzaprine 10 MG Tab PO PRN ×2 (00:01→17:32)
[2023-02-28] MEDS: Acetaminophen 325 MG Tab PO SCH ×5 (06:19→19:13)
[2023-02-28] MEDS: Midodrine 5 MG Tab PO SCH ×3 (06:20→17:27)
[2023-02-28] MEDS: busPIRone 15 MG Tab PO SCH ×3 (06:21→22:05)
[2023-02-28] MEDS: atorvaSTATin 20 MG Tab PO SCH (09:51)
[2023-02-28] MEDS: Empagliflozin 25 MG Tab PO SCH (09:51)
[2023-02-28] MEDS: Furosemide 40 MG Tab PO SCH (09:51)
[2023-02-28] MEDS: Enoxaparin 40 MG/0.4 ML Syringe SUBCUT SCH (09:51)
[2023-02-28] MEDS: Potassium Chloride 10 MEQ Tab.ER PO SCH (09:51)
[2023-02-28] MEDS: Polyethylene Glycol 3350 Powder 17 GM Packet PO SCH (09:51)
[2023-02-28] MEDS: Gabapentin 100 MG Cap PO SCH ×2 (09:51→21:45)
[2023-02-28] MEDS: Pantoprazole 40 MG Tab.CR PO SCH (09:52)
[2023-02-28] MEDS: DULoxetine 30 MG Cap PO SCH (09:52)
[2023-02-28] MEDS: MEXILETINE 150 MG PO SCH (09:59)
[2023-02-28] MEDS: oxyCODONE 5 MG Tab PO PRN ×3 (12:53→21:44)
[2023-02-28] MEDS: Mexiletine 150 MG Cap PO SCH ×2 (17:27→21:47)
[2023-02-28] MEDS: Doxepin 10 MG Cap PO SCH (21:45)
[2023-02-28] MEDS: traZODone 50 MG Tab PO SCH (21:45)
[2023-03-01] MEDS: Acetaminophen 325 MG Tab PO SCH ×2 (00:01→06:26)
[2023-03-01] MEDS: oxyCODONE 5 MG Tab PO PRN (04:05)
[2023-03-01] MEDS: Midodrine 5 MG Tab PO SCH (06:27)
[2023-03-01] MEDS: busPIRone 15 MG Tab PO SCH (06:30)
[2023-03-01] MEDS: Gabapentin 100 MG Cap PO SCH (08:20)
[2023-03-01] MEDS: DULoxetine 30 MG Cap PO SCH (08:20)
[2023-03-01] MEDS: Pantoprazole 40 MG Tab.CR PO SCH (08:21)
[2023-03-01] MEDS: Potassium Chloride 10 MEQ Tab.ER PO SCH (08:21)
[2023-03-01] MEDS: Empagliflozin 25 MG Tab PO SCH (08:21)
[2023-03-01] MEDS: atorvaSTATin 20 MG Tab PO SCH (08:21)
[2023-03-01] MEDS: Enoxaparin 40 MG/0.4 ML Syringe SUBCUT SCH (08:21)
[2023-03-01] MEDS: Mexiletine 150 MG Cap PO SCH (08:22)
[2023-03-01] MEDS ORDERED: Furosemide 20 MG Tab PO SCH (09:00)
[2023-03-01] MEDS: Polyethylene Glycol 3350 Powder 17 GM Packet PO SCH (09:05)
[2023-03-01 11:46] VITALS: BP 102/70; PULSE 79
== END 2023-03-01 11:36 | DRG 552 ==
LOC: JD.ED 14:15 → JD.MS 18:51 → OBSVTOIN 02-25 11:23
PROVIDERS: ADMIT Internal Medicine; ATTEND Internal Medicine
DX: S22.069A Unspecified fracture of T7-T8 vertebra, initial encounter for closed fracture (principal); S12.601A Unspecified nondisplaced fracture of seventh cervical vertebra, initial encounter for closed fracture; I42.8 Other cardiomyopathies; I50.22 Chronic systolic (congestive) heart failure; M62.838 Other muscle spasm; E11.9 Type 2 diabetes mellitus without complications; F41.9 Anxiety disorder, unspecified; M79.7 Fibromyalgia; W18.30XA Fall on same level, unspecified, initial encounter; Z20.822 Contact with and (suspected) exposure to COVID-19; G47.00 Insomnia, unspecified; E78.5 Hyperlipidemia, unspecified; I11.0 Hypertensive heart disease with heart failure; K21.9 Gastro-esophageal reflux disease without esophagitis; M19.90 Unspecified osteoarthritis, unspecified site; G43.909 Migraine, unspecified, not intractable, without status migrainosus; F32.A Depression, unspecified; M81.0 Age-related osteoporosis without current pathological fracture; D64.9 Anemia, unspecified; Z79.84 Long term (current) use of oral hypoglycemic drugs; Z79.899 Other long term (current) drug therapy; Z87.442 Personal history of urinary calculi; Z88.2 Allergy status to sulfonamides; Z88.8 Allergy status to other drugs, medicaments and biological substances; Z98.49 Cataract extraction status, unspecified eye; Y92.89 Other specified places as the place of occurrence of the external cause; Z95.5 Presence of coronary angioplasty implant and graft; Z90.710 Acquired absence of both cervix and uterus; Z98.890 Other specified postprocedural states; Z90.721 Acquired absence of ovaries, unilateral; Z90.49 Acquired absence of other specified parts of digestive tract; Z98.84 Bariatric surgery status
CPT/HCPCS: 36415; 72128; 72128-26; 80053; 82947; 85027; 96372; 96374; 96375; 97116-GP; 97161-GP; 99222; 99231; 99232; 99239; 99284-25; 99285; A9270-GY; G0378; J1170; J1650; J2405; J3490; U0002

== ENCOUNTER 2024-02-08 11:33 | Emergency (ER) | payer MEDICARE, MEDICAID, OTHER ==
[2024-02-08] MEDS: Sodium Chloride 0.9% 10 ML Syringe FLUSH PRN (12:02)
[2024-02-08 12:13] LABS: BASOPHILS PERCENT AUTO 0.1 % (0.0-1.0); EOSINOPHILS ABSOLUTE AUTO 0.1 K/mm3 (0.0-0.4); HEMATOCRIT 42.4 % (37.0-47.0); HEMOGLOBIN 13.7 gm/dl (12.0-16.0); IMMATURE GRAN ABSOLUTE AUTO 0.02 K/mm3 (0.00-0.05); IMMATURE GRAN PERCENT AUTO 0.3 % (0.0-0.4); LYMPHOCYTES ABSOLUTE AUTO 1.7 K/mm3 (1.0-4.8); LYMPHOCYTES PERCENT AUTO 23.9 % (24.0-44.0); MEAN CORPUSCULAR HEMOGLOBIN 29.2 pg (28.0-32.0); MEAN CORPUSCULAR HGB CONC 32.3 g/dl (32.0-36.0); MEAN CORPUSCULAR VOLUME 90.4 fl (83.0-99.0); MEAN PLATELET VOLUME 9.2 fl (9.4-12.3); MONOCYTES ABSOLUTE AUTO 0.7 K/mm3 (0.0-0.8); NEUTROPHILS ABSOLUTE AUTO 4.6 K/mm3 (1.8-7.7); NEUTROPHILS PERCENT AUTO 64.7 % (41.0-71.0); PLATELET COUNT,PLT 296 K/mm3 (150-400); RED BLOOD CELL COUNT 4.69 M/mm3 (4.10-5.30); WHITE BLOOD CELL COUNT,WBC 7.11 K/mm3 (3.9-11.3)
[2024-02-08 12:42] LABS: A/G RATIO 1.2 (1-2); ALBUMIN 3.8 g/dl (3.4-5.0); ANION GAP 12.6 (5-15); BILIRUBIN TOTAL 0.4 mg/dL (0.2-1.0); C-REACTIVE PROTEIN 0.05 mg/dL (<0.30); CALCIUM 9.5 mg/dL (8.5-10.1); EST CRCL DRUG DOSING (CG) 38.14 mL/min; POTASSIUM,K 3.6 mEq/L (3.5-5.1); PROTEIN TOTAL,TP 6.9 g/dl (6.4-8.2)
[2024-02-08 12:49] LABS: CORONAVIRUS COVID-19 NAA NEGATIVE (NEGATIVE); INFLUENZA A NAA NEGATIVE (NEGATIVE); RESPIRATORY SYNCYTIAL VIR NAA NEGATIVE (NEGATIVE)
[2024-02-08 13:58] VITALS: BP 122/91; PULSE 90
== END 2024-02-08 13:50 | disposition home or self-care (01) ==
LOC: JD.ED 11:33
DX: I11.0 Hypertensive heart disease with heart failure (principal); I50.9 Heart failure, unspecified; E78.00 Pure hypercholesterolemia, unspecified; K21.9 Gastro-esophageal reflux disease without esophagitis; Z88.8 Allergy status to other drugs, medicaments and biological substances; Z88.2 Allergy status to sulfonamides; Z88.1 Allergy status to other antibiotic agents; Z86.19 Personal history of other infectious and parasitic diseases; Z90.49 Acquired absence of other specified parts of digestive tract
CPT/HCPCS: 0241U; 36415; 71046; 80053; 83880; 84484; 85025; 85379; 86140; 93005; 99285; J3490; 93010; 99282

== ENCOUNTER 2024-02-20 15:06 | Emergency (ER) | payer MEDICARE, OTHER, MEDICAID ==
[2024-02-20 15:17] VITALS: PULSE 100
[2024-02-20 15:53] LABS: BASOPHILS PERCENT AUTO 0.4 % (0.0-1.0); EOSINOPHILS ABSOLUTE AUTO 0.1 K/mm3 (0.0-0.4); EOSINOPHILS PERCENT AUTO 1.3 % (0.0-6.0); HEMATOCRIT 46.6 % (37.0-47.0); HEMOGLOBIN 14.9 gm/dl (12.0-16.0); IMMATURE GRAN ABSOLUTE AUTO 0.02 K/mm3 (0.00-0.05); IMMATURE GRAN PERCENT AUTO 0.3 % (0.0-0.4); LYMPHOCYTES ABSOLUTE AUTO 1.7 K/mm3 (1.0-4.8); LYMPHOCYTES PERCENT AUTO 22.5 % (24.0-44.0); MEAN CORPUSCULAR HEMOGLOBIN 29.9 pg (28.0-32.0); MEAN PLATELET VOLUME 9.1 fl (9.4-12.3); MONOCYTES ABSOLUTE AUTO 0.7 K/mm3 (0.0-0.8); MONOCYTES PERCENT AUTO 9.3 % (0.0-8.0); NEUTROPHILS ABSOLUTE AUTO 5.1 K/mm3 (1.8-7.7); NEUTROPHILS PERCENT AUTO 66.2 % (41.0-71.0); PLATELET COUNT,PLT 332 K/mm3 (150-400); RED BLOOD CELL COUNT 4.98 M/mm3 (4.10-5.30); WHITE BLOOD CELL COUNT,WBC 7.74 K/mm3 (3.9-11.3)
[2024-02-20 15:55] LABS: MEAN CORPUSCULAR VOLUME 93.6 fl (83.0-99.0)
[2024-02-20] MEDS: Sodium Chloride 0.9% 10 ML Syringe FLUSH PRN (16:12)
[2024-02-20 16:13] LABS: INR 0.93
[2024-02-20] MEDS: Aspirin 81 MG Tab.Chew PO ONE (16:13)
[2024-02-20 16:14] LABS: D-DIMER QUANTITATIVE 0.26 mg/L (0.19-0.50)
[2024-02-20 16:31] LABS: A/G RATIO 1.2 (1-2); ANION GAP 13.9 (5-15); BILIRUBIN TOTAL 0.3 mg/dL (0.2-1.0); BUN/CREATININE RATIO 24.4 (14-18); CALCIUM 9.9 mg/dL (8.5-10.1); CREATININE 0.9 mg/dL (0.55-1.02); EST CRCL DRUG DOSING (CG) 42.38 mL/min; MAGNESIUM 2.2 mg/dL (1.8-2.4); PROTEIN TOTAL,TP 7.4 g/dl (6.4-8.2)
[2024-02-20 16:33] LABS: POTASSIUM,K 3.9 mEq/L (3.5-5.1)
[2024-02-20 17:38] VITALS: BP 127/84
== END 2024-02-20 17:31 | disposition home or self-care (01) ==
LOC: JD.ED 15:06
DX: M94.0 Chondrocostal junction syndrome [Tietze] (principal); I48.91 Unspecified atrial fibrillation; I11.0 Hypertensive heart disease with heart failure; I50.9 Heart failure, unspecified; E78.00 Pure hypercholesterolemia, unspecified; K21.9 Gastro-esophageal reflux disease without esophagitis; E11.9 Type 2 diabetes mellitus without complications; Z88.8 Allergy status to other drugs, medicaments and biological substances; Z88.2 Allergy status to sulfonamides; Z88.6 Allergy status to analgesic agent; Z79.899 Other long term (current) drug therapy; Z86.19 Personal history of other infectious and parasitic diseases; Z90.49 Acquired absence of other specified parts of digestive tract
CPT/HCPCS: 36415; 71045; 80053; 83735; 83880; 84484; 85025; 85379; 85610; 93005; 99285; A9270; J3490

== ENCOUNTER 2024-02-29 19:45 | Emergency (ER) | payer MEDICARE, OTHER, MEDICAID ==
[2024-02-29] MEDS ORDERED: Naloxone 0.4 MG/ML SDV IVPUSH PRN (20:18)
[2024-02-29] MEDS: Aspirin 81 MG Tab.Chew PO ONE (20:46)
[2024-02-29] MEDS: Ondansetron 4 MG/2 ML SDV IVPUSH ONE (20:46)
[2024-02-29] MEDS: Morphine 4 MG/ML Syringe IVPUSH ONE (20:46)
[2024-02-29 20:59] LABS: BASOPHILS PERCENT AUTO 0.3 % (0.0-1.0); EOSINOPHILS ABSOLUTE AUTO 0.1 K/mm3 (0.0-0.4); EOSINOPHILS PERCENT AUTO 1.7 % (0.0-6.0); HEMATOCRIT 43.2 % (37.0-47.0); HEMOGLOBIN 13.8 gm/dl (12.0-16.0); IMMATURE GRAN ABSOLUTE AUTO 0.01 K/mm3 (0.00-0.05); IMMATURE GRAN PERCENT AUTO 0.2 % (0.0-0.4); LYMPHOCYTES ABSOLUTE AUTO 1.7 K/mm3 (1.0-4.8); LYMPHOCYTES PERCENT AUTO 26.3 % (24.0-44.0); MEAN CORPUSCULAR HEMOGLOBIN 29.5 pg (28.0-32.0); MEAN CORPUSCULAR HGB CONC 31.9 g/dl (32.0-36.0); MEAN CORPUSCULAR VOLUME 92.3 fl (83.0-99.0); MONOCYTES ABSOLUTE AUTO 0.6 K/mm3 (0.0-0.8); MONOCYTES PERCENT AUTO 8.5 % (0.0-8.0); NEUTROPHILS ABSOLUTE AUTO 4.1 K/mm3 (1.8-7.7); PLATELET COUNT,PLT 280 K/mm3 (150-400); RED BLOOD CELL COUNT 4.68 M/mm3 (4.10-5.30); WHITE BLOOD CELL COUNT,WBC 6.46 K/mm3 (3.9-11.3)
[2024-02-29 21:26] LABS: A/G RATIO 1.2 (1-2); ALBUMIN 3.8 g/dl (3.4-5.0); ANION GAP 12.8 (5-15); BILIRUBIN TOTAL 0.4 mg/dL (0.2-1.0); BUN/CREATININE RATIO 14.4 (14-18); CALCIUM 9.5 mg/dL (8.5-10.1); CREATININE 0.9 mg/dL (0.55-1.02); EST CRCL DRUG DOSING (CG) 42.38 mL/min; MAGNESIUM 2.1 mg/dL (1.8-2.4); POTASSIUM,K 3.8 mEq/L (3.5-5.1); PROTEIN TOTAL,TP 7.1 g/dl (6.4-8.2)
[2024-02-29] MEDS: Iopamidol 612 MG/ML 100 ML Bottle IVPUSH ONE (22:25)
[2024-03-01 00:29] VITALS: BP 132/73; PULSE 93
== END 2024-03-01 00:29 | disposition home or self-care (01) ==
LOC: JD.ED 19:45
DX: K59.00 Constipation, unspecified (principal); R10.10 Upper abdominal pain, unspecified; I11.0 Hypertensive heart disease with heart failure; I50.9 Heart failure, unspecified; E78.00 Pure hypercholesterolemia, unspecified; K21.9 Gastro-esophageal reflux disease without esophagitis; E11.9 Type 2 diabetes mellitus without complications; Z88.8 Allergy status to other drugs, medicaments and biological substances; Z88.2 Allergy status to sulfonamides; Z86.19 Personal history of other infectious and parasitic diseases; Z79.84 Long term (current) use of oral hypoglycemic drugs; Z79.899 Other long term (current) drug therapy; Z90.49 Acquired absence of other specified parts of digestive tract
CPT/HCPCS: 36415; 71045; 71045-26; 74177; 74177-26; 80053; 83690; 83735; 84484; 85025; 93005; 93010; 96374; 96375; 99284; 99285-25; A9270-GY; J2270; J2405; Q9967

== ENCOUNTER 2024-11-20 07:23 | Emergency (ER) | payer MEDICARE, MEDICAID ==
[2024-11-20 07:41] VITALS: BP 152/82; PULSE 109
[2024-11-20 08:00] LABS: BASOPHILS PERCENT AUTO 0.3 % (0.0-1.0); EOSINOPHILS PERCENT AUTO 0.4 % (0.0-6.0); HEMATOCRIT 46.2 % (37.0-47.0); HEMOGLOBIN 14.1 gm/dl (12.0-16.0); IMMATURE GRAN ABSOLUTE AUTO 0.01 K/mm3 (0.00-0.05); IMMATURE GRAN PERCENT AUTO 0.1 % (0.0-0.4); LYMPHOCYTES ABSOLUTE AUTO 0.4 K/mm3 (1.0-4.8); MEAN CORPUSCULAR HEMOGLOBIN 26.7 pg (28.0-32.0); MEAN CORPUSCULAR HGB CONC 30.5 g/dl (32.0-36.0); MEAN CORPUSCULAR VOLUME 87.5 fl (83.0-99.0); MEAN PLATELET VOLUME 9.7 fl (9.4-12.3); MONOCYTES ABSOLUTE AUTO 0.4 K/mm3 (0.0-0.8); NEUTROPHILS ABSOLUTE AUTO 6.6 K/mm3 (1.8-7.7); NEUTROPHILS PERCENT AUTO 89.2 % (41.0-71.0); PLATELET COUNT,PLT 237 K/mm3 (150-400); RED BLOOD CELL COUNT 5.28 M/mm3 (4.10-5.30); WHITE BLOOD CELL COUNT,WBC 7.35 K/mm3 (3.9-11.3)
[2024-11-20] MEDS: Iopamidol 612 MG/ML 30 ML SDV IVPUSH ONE (08:11)
[2024-11-20] MEDS: Sodium Chloride 0.9% 10 ML Syringe FLUSH PRN (08:11)
[2024-11-20] MEDS: Iopamidol 612 MG/ML 100 ML Bottle IVPUSH ONE (08:11)
[2024-11-20] MEDS: Acetaminophen 325 MG Tab PO ONE (09:39)
[2024-11-20] MEDS: Doxycycline Monohydrate 100 MG Cap PO ONE (11:43)
== END 2024-11-20 11:37 | disposition home or self-care (01) ==
LOC: MERGE 07:23 → JD.ED 07:23
DX: S09.90XA Unspecified injury of head, initial encounter (principal); M25.551 Pain in right hip; M25.552 Pain in left hip; M54.6 Pain in thoracic spine; Z88.2 Allergy status to sulfonamides; Z88.8 Allergy status to other drugs, medicaments and biological substances; Z79.84 Long term (current) use of oral hypoglycemic drugs; Z79.899 Other long term (current) drug therapy; W19.XXXA Unspecified fall, initial encounter; Y92.012 Bathroom of single-family (private) house as the place of occurrence of the external cause
CPT/HCPCS: 36415; 70450; 71260; 72125; 74177; 83735; 85025; 99284; A9270; Q9967

== ENCOUNTER 2025-01-30 09:55 | Day surgery (SDC) | payer MEDICARE, OTHER ==
[~2025-01-30 09:55] MED LIST: Sodium Chloride 0.9% 10 ML Syringe FLUSH PRN; Sodium Chloride 0.9% 10 ML Syringe FLUSH SCH
[2025-01-30] MEDS: Lactated Ringers 1,000 ML IV SCH (10:30)
[2025-01-30] MEDS ORDERED: Propofol 200 MG/20 ML SDV ONE (10:39)
[2025-01-30] MEDS ORDERED: Lidocaine 1% 4 ML ONE (10:40)
[2025-01-30 11:09] LABS: BARBITURATE SCREEN,URINE NEGATIVE (CUTOFF=200); BENZODIAZEPINES SCREEN,URINE NEGATIVE (CUTOFF=150); BUPRENORPHINE SCREEN,URINE NEGATIVE (CUTOFF=10); METHADONE SCREEN, URINE NEGATIVE (CUTOFF=200); METHAMPHETAMINES SCREEN, URINE NEGATIVE (CUTOFF=500); OXYCODONE SCREEN,URINE NEGATIVE (CUT0FF=100); THC SCREEN,URINE 20 NG/ML NEGATIVE (CUTOFF=50)
[2025-01-30 11:12] LABS: AMPHETAMINES SCREEN, URINE NEGATIVE (CUTOFF=500)
[2025-01-30 13:22] VITALS: BP 128/88; PULSE 76
== END 2025-01-30 12:44 | disposition home or self-care (01) ==
LOC: JD.SDS 09:55
PROVIDERS: ATTEND Surgery
DX: R13.10 Dysphagia, unspecified (principal); E11.9 Type 2 diabetes mellitus without complications; I11.0 Hypertensive heart disease with heart failure; I50.9 Heart failure, unspecified; E78.00 Pure hypercholesterolemia, unspecified; K21.9 Gastro-esophageal reflux disease without esophagitis; F41.9 Anxiety disorder, unspecified; Z87.891 Personal history of nicotine dependence; Z79.84 Long term (current) use of oral hypoglycemic drugs; Z79.899 Other long term (current) drug therapy; Z88.8 Allergy status to other drugs, medicaments and biological substances; Z88.2 Allergy status to sulfonamides
CPT/HCPCS: 43239; 80306; J2003; J2704; J7120; 00731; 88305; 99100

== ENCOUNTER 2025-03-21 21:31 | Emergency (ER) | payer MEDICARE, OTHER ==
[2025-03-21] MEDS ORDERED: Sodium Chloride 0.9% 10 ML Syringe FLUSH ONE (22:26)
[2025-03-21 22:28] LABS: BASOPHILS PERCENT AUTO 0.2 % (0.0-1.0); EOSINOPHILS ABSOLUTE AUTO 0.1 K/mm3 (0.0-0.4); EOSINOPHILS PERCENT AUTO 0.5 % (0.0-6.0); HEMATOCRIT 38.4 % (37.0-47.0); HEMOGLOBIN 11.7 gm/dl (12.0-16.0); IMMATURE GRAN ABSOLUTE AUTO 0.03 K/mm3 (0.00-0.05); IMMATURE GRAN PERCENT AUTO 0.3 % (0.0-0.4); LYMPHOCYTES ABSOLUTE AUTO 1.7 K/mm3 (1.0-4.8); LYMPHOCYTES PERCENT AUTO 17.4 % (24.0-44.0); MEAN CORPUSCULAR HEMOGLOBIN 25.2 pg (28.0-32.0); MEAN CORPUSCULAR HGB CONC 30.5 g/dl (32.0-36.0); MEAN CORPUSCULAR VOLUME 82.6 fl (83.0-99.0); MEAN PLATELET VOLUME 9.9 fl (9.4-12.3); MONOCYTES ABSOLUTE AUTO 0.9 K/mm3 (0.0-0.8); MONOCYTES PERCENT AUTO 9.4 % (0.0-8.0); NEUTROPHILS ABSOLUTE AUTO 7.2 K/mm3 (1.8-7.7); NEUTROPHILS PERCENT AUTO 72.2 % (41.0-71.0); PLATELET COUNT,PLT 308 K/mm3 (150-400); RED BLOOD CELL COUNT 4.65 M/mm3 (4.10-5.30); WHITE BLOOD CELL COUNT,WBC 9.96 K/mm3 (3.9-11.3)
[2025-03-21] MEDS: Sodium Chloride 0.9% 1,000 ML IV ONE (22:30)
[2025-03-21] MEDS: fentaNYL 100 MCG/2 ML SDV IVPUSH ONE (22:30)
[2025-03-21 22:36] LABS: A/G RATIO 1.1 (1-2); ALBUMIN 3.6 g/dl (3.4-5.0); ANION GAP 13.7 (5-15); BILIRUBIN TOTAL 0.3 mg/dL (0.2-1.0); BUN/CREATININE RATIO 32.9 (14-18); CALCIUM 9.6 mg/dL (8.5-10.1); CREATININE 0.7 mg/dL (0.55-1.02); EST CRCL DRUG DOSING (CG) 53.71 mL/min; POTASSIUM,K 3.7 mEq/L (3.5-5.1)
[2025-03-21] MEDS: Iopamidol 612 MG/ML 100 ML Bottle IVPUSH ONE (22:53)
[2025-03-21] MEDS: Sodium Chloride 0.9% 10 ML Syringe FLUSH PRN (22:53)
[2025-03-21 23:36] LABS: APPEARANCE,URINE CLEAR (Clear); BILIRUBIN,URINE NEGATIVE (Negative); COLOR,URINE YELLOW (Yellow); GLUCOSE,URINE 2+ (Negative); KETONES,URINE TRACE (Negative); LEUKOCYTE ESTERASE,URINE NEGATIVE (Negative); NITRITE,URINE NEGATIVE (Negative); OCCULT BLOOD,URINE NEGATIVE (Negative); PH,URINE 7.5 (5.0-8.0); PROTEIN,URINE NEGATIVE (Negative); UROBILINOGEN,URINE 0.2 (0.2-1.0)
[2025-03-22] MEDS: Amoxicillin/Clavulanate K 875-125 MG Tab PO ONE (00:33)
[2025-03-22 00:58] VITALS: BP 142/87; PULSE 93
== END 2025-03-22 00:37 | disposition home or self-care (01) ==
LOC: JD.ED 21:31
DX: K57.32 Diverticulitis of large intestine without perforation or abscess without bleeding (principal); I11.0 Hypertensive heart disease with heart failure; I50.9 Heart failure, unspecified; I48.91 Unspecified atrial fibrillation; E11.9 Type 2 diabetes mellitus without complications; E78.00 Pure hypercholesterolemia, unspecified; M19.90 Unspecified osteoarthritis, unspecified site; K21.9 Gastro-esophageal reflux disease without esophagitis; Z88.8 Allergy status to other drugs, medicaments and biological substances; Z88.2 Allergy status to sulfonamides; Z79.899 Other long term (current) drug therapy; Z79.84 Long term (current) use of oral hypoglycemic drugs; Z79.51 Long term (current) use of inhaled steroids; Z86.16 Personal history of COVID-19; Z90.710 Acquired absence of both cervix and uterus; Z90.49 Acquired absence of other specified parts of digestive tract; Z87.891 Personal history of nicotine dependence
CPT/HCPCS: 36415; 74177; 80053; 81003; 83690; 85025; 93005; 96361; 96374; 99284; A9270; J3010; J7030; Q9967; 93010

== ENCOUNTER 2025-04-23 12:22 | Emergency (ER) | payer MEDICARE, OTHER ==
[2025-04-23 12:54] LABS: BASOPHILS PERCENT AUTO 0.3 % (0.0-1.0); EOSINOPHILS ABSOLUTE AUTO 0.1 K/mm3 (0.0-0.4); EOSINOPHILS PERCENT AUTO 0.6 % (0.0-6.0); HEMATOCRIT 43.9 % (37.0-47.0); IMMATURE GRAN ABSOLUTE AUTO 0.02 K/mm3 (0.00-0.05); IMMATURE GRAN PERCENT AUTO 0.3 % (0.0-0.4); LYMPHOCYTES ABSOLUTE AUTO 1.5 K/mm3 (1.0-4.8); LYMPHOCYTES PERCENT AUTO 18.8 % (24.0-44.0); MEAN CORPUSCULAR HEMOGLOBIN 25.2 pg (28.0-32.0); MEAN CORPUSCULAR HGB CONC 30.8 g/dl (32.0-36.0); MEAN CORPUSCULAR VOLUME 82.1 fl (83.0-99.0); MEAN PLATELET VOLUME 9.1 fl (9.4-12.3); MONOCYTES ABSOLUTE AUTO 0.7 K/mm3 (0.0-0.8); MONOCYTES PERCENT AUTO 8.5 % (0.0-8.0); NEUTROPHILS ABSOLUTE AUTO 5.7 K/mm3 (1.8-7.7); NEUTROPHILS PERCENT AUTO 71.5 % (41.0-71.0); PLATELET COUNT,PLT 299 K/mm3 (150-400); RED BLOOD CELL COUNT 5.35 M/mm3 (4.10-5.30); WHITE BLOOD CELL COUNT,WBC 7.98 K/mm3 (3.9-11.3)
[2025-04-23] MEDS ORDERED: Naloxone 0.4 MG/ML SDV IVPUSH PRN (12:56)
[2025-04-23 13:04] LABS: HEMOGLOBIN 13.5 gm/dl (12.0-16.0)
[2025-04-23] MEDS: Ondansetron 4 MG/2 ML SDV IVPUSH ONE (13:08)
[2025-04-23] MEDS: Morphine 4 MG/ML Syringe IVPUSH ONE (13:09)
[2025-04-23] MEDS: Aspirin 81 MG Tab.Chew PO ONE (13:09)
[2025-04-23] MEDS: Sodium Chloride 0.9% 10 ML Syringe FLUSH PRN (13:12)
[2025-04-23 13:18] LABS: A/G RATIO 1.1 (1-2); ALANINE AMINOTRANSFERASE,ALT 76 U/L (14-59); ALKALINE PHOSPHATASE 105 U/L (46-116); ANION GAP 12.5 (5-15); ASPARTATE AMNIOTRANSFERASE,AST 45 U/L (15-37); BILIRUBIN TOTAL 0.3 mg/dL (0.2-1.0); BLOOD UREA NITROGEN,BUN 21 mg/dL (7-18); BUN/CREATININE RATIO 26.3 (14-18); CALCIUM 10.2 mg/dL (8.5-10.1); CARBON DIOXIDE,CO2 33 mEq/L (21-32); CHLORIDE,CL 99 mEq/L (98-107); CREATININE 0.8 mg/dL (0.55-1.02); ESTIMATED GFR 79 mL/min (>60); GLUCOSE RANDOM 168 mg/dL (70-99); MAGNESIUM 2.2 mg/dL (1.8-2.4); POTASSIUM,K 3.5 mEq/L (3.5-5.1); PROTEIN TOTAL,TP 7.7 g/dl (6.4-8.2); SODIUM,NA 141 mEq/L (136-145); TROPONIN I HIGH SENSITIVITY 13 pg/mL (<=51)
[2025-04-23 19:20] VITALS: BP 114/77; PULSE 76
== END 2025-04-23 16:50 | disposition home or self-care (01) ==
LOC: JD.ED 12:22
DX: R07.9 Chest pain, unspecified (principal); I11.0 Hypertensive heart disease with heart failure; I50.9 Heart failure, unspecified; I48.91 Unspecified atrial fibrillation; E11.9 Type 2 diabetes mellitus without complications; E78.00 Pure hypercholesterolemia, unspecified; M19.90 Unspecified osteoarthritis, unspecified site; K21.9 Gastro-esophageal reflux disease without esophagitis; Z88.8 Allergy status to other drugs, medicaments and biological substances; Z88.2 Allergy status to sulfonamides; Z79.51 Long term (current) use of inhaled steroids; Z79.899 Other long term (current) drug therapy; Z79.84 Long term (current) use of oral hypoglycemic drugs; Z86.16 Personal history of COVID-19; Z90.710 Acquired absence of both cervix and uterus; Z90.49 Acquired absence of other specified parts of digestive tract
CPT/HCPCS: 36415; 71045; 80053; 83735; 84484; 85025; 93005; 96374; 96375; 99285; A9270; J2270; J2405; 93010; 99283